=== PATIENT | female | born 1970 | race Caucasian/White ===

== ENCOUNTER 2023-08-04 09:16 | Outpatient (REF) | payer OTHER, SELFPAY ==
[2023-08-04 11:22] LABS: Iron 118 mcg/dL (30-160); Percent Iron Saturation 28 % (15-50); Total Iron Binding Capacity 419 mcg/dL (228-428); Unsaturated Iron Binding 301 ug/dL
== END 2023-08-04 09:17 | disposition home or self-care (01) ==
LOC: HO.LAB 09:16
PROVIDERS: PCP Internal Medicine; Visit Provider Psychiatry & Neurology Neurology
DX: G25.9 Extrapyramidal and movement disorder, unspecified (principal)
CPT/HCPCS: 36415; 83540

== ENCOUNTER 2024-06-10 09:04 | Outpatient (REF) | payer OTHER, SELFPAY ==
--- OUTSIDE RECORDS SUMMARY | 2024-06-10 09:50 | XMS_ITS | Encounter Summary ---
Author Organization [facility] [place] [address] Care Team Providers Care Medical Record Librarian Name Role Phone Lazaro Fuentes MD Primary Care Provider [phone] Reason for Referral * Imaging (Routine) - Closed Specialty Diagnoses / Procedures Referred By Mychal cardenas Referred To Contact Radiology Diagnoses Family history of multiple sclerosis Muscle weakness Procedures MR Brain wo Contrast Lazaro Fuentes MD [address] [place] [address] Phone: tel: fax: [address] Phone: tel: fax: Referral ID Status Reason Start Date Expiration Date Visits Re quested Visits Authorized [id number] Closed 05/18/2024 07/17/2024 1 1 Reason for Visit * Imaging (Routine) - Closed Specialty Diagnoses / Procedures Referred By Mychal cardenas Referred To Contact Radiology Diagnoses Family history of multiple sclerosis Muscle weakness Procedures MR Brain wo Contrast Lazaro Fuentes MD [address] [place] [address] Phone: tel: fax: Radiology Department - [address] Phone: tel: fax: Referral ID Status Reason Start Date Expiration Date Visits Re quested Visits Authorized [id number] Closed 05/18/2024 07/17/2024 1 1 Encounter Details Date Type Department Care Team (Latest Contact Info) Description 06/01/2024 6:03 PM EST - 06/01/2024 11:59 PM EST Hospital Encounter Radiology Department - [address] [address] Family history of multiple sclerosis; Muscle weakness Discharge Disposition: Home or Self Care Social History Tobacco Use Types Packs/Day Years Used Date Smoking Tobacco: Former Cigarettes 1 40.6 0 04/06/1982 - 10/31/2022 Smokeless Tobacco: Never Alcohol Use Standard Drinks/Week Comments No 0 (1 standard drink = 0.6 oz pur e alcohol) Comments No Sex and Gender Information Value Date Recorded Sex Assigned at Female 06/03/2024 12:14 PM EST Legal Sex Female 8:58 AM EDT Gender Identity Female 06/03/2024 12:14 PM EST Sexual Orientation Straight 06/03/2024 12 :14 PM EST documented as of this encounter Medications at Time of Discharge albuterol HFA (Ventolin HFA) 90 mcg/actuation inhaler INHALE 2 PUFFS INTO THE LUNGS 4 TIMES DAILY NEEDED FOR COUGH OR WHEEZING. 08/18/2022 atorvastatin (LIPITOR) 40 mg tablet Take 1 tablet (40 mg total) by mouth 1 (one) time each day. 02/24/2023 busPIRone (BUSPAR) 15 mg tablet Take 1.5 tablets (22.5 mg total) by mouth 2 (two) times a day. 02/16/2024 cetirizine (ZyrTEC) 10 mg tablet Take 1 tablet (10 mg total) by mouth 1 (one) time each day. 10/22/2023 famotidine (PEPCID) 20 mg tablet Take 1 tablet (20 mg total) by mouth 2 (two) times a day. 08/17/2023 fluticasone propionate (FLONASE) 50 mcg/actuation nasal spray Administer 1 spray into affected nostril(s). 06/05/2022 folic acid (FOLVITE) 800 mcg tablet Take 1 tablet (800 mcg total) by mouth 1 (one) time each day. gabapentin (NEURONTIN) 300 mg capsule Take 2 capsules (600 mg total) by mouth 2 (two) times a day. 10/05/2023 lidocaine (LIDODERM) 5 % patch Apply 1 patch topically 1 (one) time each day. 28 patch 1 03/31/2024 lurasidone (LATUDA) 20 mg tablet Take 1 tablet (20 mg total) by mouth 1 (one) time each day in the evening. 05/15/2024 melatonin 3 mg capsule Take by mouth. mirtazapine (REMERON) 15 mg tablet Take 1 tablet (15 mg total) by mouth at bedtime. 04/14/2024 pramipexole (MIRAPEX) 1.5 mg tablet Take 1.5 tablets (2.25 mg total) by mouth 1 (one) time each day. 05/15/2023 simethicone (Gas Relief, simethicone,) 180 mg capsule Take 1 capsule (180 mg total) by mouth 2 (two) times a day. tryptophan 500 mg capsule Take by mouth. documented as of this encounter Discharge Disposition Disposition Code Departure Means Destination Home or Self Care documented in this encounter Plan of Treatment Upcoming Encounters Date Type Department Care Team (Late st Contact Info) Description 06/14/2024 1:00 PM EDT Office Visit [facility] [address] [facility] [address] [facility] [address] [place] [phone] Oscar Eckert MD [address] [facility] [address] [facility] [address] [place] [phone] 06/14/2024 3:30 PM EDT Appointment Radiology Department [address] [address] 06/15/2024 10:30 AM EDT Office Visit Internal Medicine - [address] [phone] Lazaro Fuentes MD [address] [place] [address] 06/17/2024 7:00 AM EDT Evaluation [facility] [place] [address] [place] [phone] Mary Suarez, JAYSHREE 06/24/2024 8:00 AM EDT Office Visit Gastroenterology - [address] [place] [address] Farhana Potter PA [address] [place] [address] 07/04/2024 10:00 AM EDT Office Visit Urogynecology - [place] [address] [place] [address] Daxa Khan MD [address] [facility] [address] [place] [address] documented as of this encounter Procedures Procedure Name Priority Date/Time Associated Diagnosis Comments MR BRAIN WO CONTRAST Routine 06/01/2024 6:45 PM EST Family history of multiple sclerosis Muscle weakness documented in this encounter Results * MR Brain wo Contrast (06/01/2024 6:45 PM EST) Anatomical Region Laterality Modality Head and Neck Magnetic Resonan ce 06/01/2024 7:09 PM EST Impressions 06/02/2024 4:33 PM EST Nonspecific white matter signal abnormalities. ??Differential is broad and includes chronic small vessel ischemic disease, demyelinating disease, infection such as Lyme, and vasculitis. ??No evidence of a recent infarction, intracranial hemorrhage, mass, or mass effect. POS - [id number] -------- FINAL REPORT -------- Dictated By: Nat Martinez Dictated Date: 06/01/2024 19:09 ET Assigned Physician: Nat Martinez Reviewed and Electronically Signed By: Nat Martinez Signed Date: 06/02/2024 16:33 ET Workstation ID: [id number] Transcribed By: Self Edit Transcribed Date: 06/01/2024 19:36 ET Narrative 06/02/2024 4:33 PM EST EXAM: Brain MRI HISTORY: ??Muscle weakness in thighs and legs. ??Family history of multiple sclerosis in a 1st cousin. COMPARISON: None CORRELATION: ??Head CT 08/24/2023 TECHNIQUE: Exam performed on a 1.5 Verenice high-field MRI scanner. ??Multiplanar imaging performed without contrast. ?? FINDINGS: No restricted diffusion to indicate a recent infarct. ??No evidence of intracranial hemorrhage. ??Few T2/FLAIR hyperintense foci in the white matter of the left parietal lobe and right frontal lobe. ??Faint periventricular T2/FLAIR hyperintense signal abnormalities more so adjacent to the atria of the lateral ventricles. No evidence of a mass, mass effect, or midline shift. ??No hydrocephalus. ??Basal cisterns are patent. ??No cerebellar ectopia. ??Pituitary gland is not enlarged. ??Normal vascular flow-voids appear present in the major intracranial arteries at the skull base. Minimal mucosal thickening in the ethmoid sinuses. ??No significant fluid signal within mastoid air cells. Procedure Note Nat Martinez MD - 06/02/2024 EXAM: Brain MRI HISTORY: Muscle weakness in thighs and legs. Family history of multiplesclerosis in a 1st cousin. COMPARISON: None CORRELATION: Head CT 08/24/2023 TECHNIQUE: Exam performed on a 1.5 Verenice high-field MRI scanner.Multiplanar imaging performed without contrast. FINDINGS: No restricted diffusion to indicate a recent infarct. No evidence ofintracranial hemorrhage. Few T2/FLAIR hyperintense foci in the whitematter of the left parietal lobe and right frontal lobe. Faintperiventricular T2/FLAIR hyperintense signal abnormalities more soadjacent to the atria of the lateral ventricles. No evidence of a mass, mass effect, or midline shift. No hydrocephalus.Basal cisterns are patent. No cerebellar ectopia. Pituitary gland is notenlarged. Normal vascular flow-voids appear present in the majorintracranial arteries at the skull base. Minimal mucosal thickening in the ethmoid sinuses. No significant fluidsignal within mastoid air cells. IMPRESSION: Nonspecific white matter signal abnormalities. Differential is broad andincludes chronic small vessel ischemic disease, demyelinating disease,infection such as Lyme, and vasculitis. No evidence of a recentinfarction, intracranial hemorrhage, mass, or mass effect. POS - [id number] -------- FINAL REPORT -------- Dictated By: Nat Martinez Dictated Date: 06/01/2024 19:09 ET Assigned Physician: Nat Martinez Reviewed and Electronically Signed By: Nat Martinez Signed Date: 06/02/2024 16:33 ET Workstation ID: [id number] Transcribed By: Self Edit Transcribed Date: 06/01/2024 19:36 ET Lazaro Fuentes MD IMG MRI PROCEDURES Final Result documented in this encounter Visit Diagnoses Diagnosis Family history of multiple sclerosis Family history of other neurological diseases Muscle weakness Muscle weakness (generalized) documented in this encounter Additional Health Concerns Infection Onset Date Last Indicated Resolved Time COVID-19 05/23/2024 05/23/2024 documented as of this encounter Care Teams Medical Record Librarian Relationship Specialty Start Date End Date Lazaro Fuentes MD [address] [place] [address] PCP - General Internal Medicine 03/18/16 documented as of this encounter
--- OUTSIDE RECORDS SUMMARY | 2024-06-10 09:50 | XMS_ITS | Encounter Summary ---
Author Organization [facility] [place] [address] Care Team Providers Care Bank Vault Custodian Name Role Phone Lazaro Fuentes MD Primary Care Provider [phone] Encounter Details Date Type Department Care Team (Latest Contact Info) Description 05/18/2024 11:03 AM EST - 05/18/2024 11:59 PM EST Hospital Encounter [facility] [address] [place] [phone] Unintended weight loss Discharge Disposition: Home or Self Care Social [...] tryptophan 500 mg capsule Take by mouth. baclofen (LIORESAL) 20 mg tablet Take 1 tablet (20 mg total) by mouth 2 (two) times a day. 60 each 1 05/18/2024 5 documented as of this encounter Discharge Disposition Disposition Code Departure Means Destination Home or Self Care documented in this encounter Plan of Treatment Upcoming Encounters Date Type Department Care Team (Late st Contact Info) Description 06/14/2024 1:00 PM EDT Office Visit [facility] [place] [address] [place] [phone] Oscar Eckert MD [address] [facility] [place] [phone] 06/14/2024 3:30 PM EDT Appointment Radiology Department - [address] [phone] 06/15/2024 10:30 AM EDT Office Visit Internal Medicine - [facility] [address] [place] [address] Lazaro Fuentes MD [address] [place] [address] 06/17/2024 7:00 AM EDT Evaluation [facility] [place] [address] [facility] [facility] [address] [place] [phone] Mary Suarez PT 06/24/2024 8:00 AM EDT Office Visit Gastroenterology - [address] [facility] [address] [place] [address] Farhana Potter PA [address] [facility] [address] [facility] [address] [place] [address] 07/04/2024 10:00 AM EDT Office Visit Urogynecology - [address] [phone] Daxa Khan MD [address] [place] [address] [address] [place] [address] documented as of this encounter Procedures Procedure Name Priority Date/Time Associated Diagnosis Comments XR CHEST 2 VIEWS Routine 05/18/2024 11:0 7 AM EST Unintended weight loss documented in this encounter Results * XR Chest 2 Views (05/18/2024 11:07 AM EST) Anatomical Region Laterality Modality Body Radiographic Cecilia ging 05/18/2024 1:33 PM EST Impressions 05/18/2024 1:35 PM EST No acute pulmonary pathology. -------- FINAL REPORT -------- Dictated By: Yumiko Hidalgo Dictated Date: 05/18/2024 13:33 ET Assigned Physician: Yumiko Hidalgo Reviewed and Electronically Signed By: Yumiko Hidalgo Signed Date: 05/18/2024 13:35 ET Workstation ID: [id number] Transcribed By: Self Edit Transcribed Date: 05/18/2024 13:33 ET Narrative 05/18/2024 1:35 PM EST CHEST, TWO VIEWS HISTORY: ?? Weight loss. TECHNIQUE: Frontal and lateral views of the chest. PRIOR: Chest x-ray 07/06/2017. FINDINGS: The lungs are clear. No pleural effusion is seen. No pneumothorax is seen. The cardiac diameter is within normal limits. No acute or aggressive appearing bony abnormalities are seen. ??There is curvature and degenerative change of the spine. Procedure Note Yumiko Hidalgo MD - 05/18/2024 CHEST, TWO VIEWS HISTORY: Weight loss. TECHNIQUE: Frontal and lateral views of the chest. PRIOR: Chest x-ray 07/06/2017. FINDINGS: The lungs are clear. No pleural effusion is seen. No pneumothorax is seen. The cardiac diameter is within normal limits. No acute or aggressive appearing bony abnormalities are seen. There iscurvature and degenerative change of the spine. IMPRESSION: No acute pulmonary pathology. -------- FINAL REPORT -------- Dictated By: Yumiko Hidalgo Dictated Date: 05/18/2024 13:33 ET Assigned Physician: Yumiko Hidalgo Reviewed and Electronically Signed By: Yumiko Hidalgo Signed Date: 05/18/2024 13:35 ET Workstation ID: [id number] Transcribed By: Self Edit Transcribed Date: 05/18/2024 13:33 ET Lazaro Fuentes MD IMG XR PROCEDURES Final R esult documented in this encounter Visit Diagnoses Diagnosis Unintended weight loss documented in this encounter Care Teams Bank Vault Custodian Relationship Specialty Start Date End Date Lazaro Fuentes MD [address] [place] [address] PCP - General Internal Medicine 03/18/16 documented as of this encounter
--- OUTSIDE RECORDS SUMMARY | 2024-06-10 09:50 | XMS_ITS | Clinical Summary ---
Author Organization [employer] [facility] Address [address] [place] [address] Care Team Providers Care Flame Hardening Machine Operator Name Role Phone Unavailable Primary Care Provider Unavailabl e Social History Tobacco Use Types Packs/Day Years Used Date Smoking Tobacco: Never Assessed Sex and Gender Information Value Date Recorded Sex Assigned at Female 07/03/2019 9:12 AM EDT Gender Identity Not on file Sexual Orientation Not on file Job Start Date Occupation Industry Not on file Not on file Not on file Plan of Treatment Not on file
--- OUTSIDE RECORDS SUMMARY | 2024-06-10 09:50 | XMS_ITS | Encounter Summary ---
Author Organization [facility] [place] [address] Care Team Providers Care Department Director Name Role Phone Lazaro Fuentes MD Primary Care Provider [phone] Reason for Visit * Reason Comments URI Hyperlipidemia Encounter Details Date Type Department Care Team ([facility] Contact Info) Description 05/23/2024 1:45 PM EST Office Visit [facility] [address] [phone] Roderick Chavez PA [address] [place] [address] COVID (Primary Dx) Social History Tobacco Use Types Packs/Day Years Used Date Smoking Tobacco: Former Cigarettes 1 40.6 0 04/06/1982 - 10/31/2022 Smokeless Tobacco: Never Tobacco Cessation:Counseling Given: Not Answered Alcohol Use Standard Drinks/Week Comments No 0 (1 standard drink = 0.6 oz pur e alcohol) Comments No Sex and Gender Information Value Date Recorded Sex Assigned at Female 06/03/2024 12:14 PM EST Legal Sex Female 8:58 AM EDT Gender Identity Female 06/03/2024 12:14 PM EST Sexual Orientation Straight 06/03/2024 12 :14 PM EST documented as of this encounter Last Filed Vital Signs Vital Sign Reading Time Taken Comments Blood Pressure 102/64 05/23/2024 1:42 PM EST Pulse 78 05/23/2024 1:42 PM EST Temperature 36.9 ??C (98.4 ??F) 05/23/2024 1:42 PM ES T Respiratory Rate - - Oxygen Saturation 99% 05/23/2024 1:42 PM EST Inhaled Oxygen Concentration - - Weight - - Height - - Body Mass Index - - documented in this encounter Progress Notes * SHAD Newberry - 05/23/2024 1:45 PM EST CHIEF COMPLAINT: URI and Hyperlipidemia had concerns including URI and Hyperlipidemia. IDENTIFIER: Afia Garcia is a 53 y.o. old female. [address] [facility] HPI: Afia Garcia presents to urgent care for evaluation of chills body aches cough. Fatigue. Patient's been with the symptoms for about a day.. PHYSICAL EXAM: Vitals: 05/23/24 1342 BP: 102/64 Pulse: 78 Temp: 36.9 ??C (98.4 ??F) SpO2: 99% APPEARANCE: Alert and in no acute distress HEENT: EOMs full and intact, PERRLA, conjunctivae and sclerae normal, nasal exam showed no discharge, swelling or lesions noted, hearing was normal bilaterally to whispered voice, clear aduitory canals, tympanic membranes pearly with no bulging, teeth intact, non-carious and tongue midline and normal. Oropharynx, pink, moist. Tonsils not enlarged with no exudate NECK:Neck supple, no adenopathy, thyroid symmetric and of normal size CARDIOVASCULAR:regular rate and rhythm without murmurs PULMONARY:unlabored respirations, no intercostal retractions or accessory muscle use and clear to auscultation without rales or wheezes LABS/IMAGING: Office Visit on 05/23/2024 Component Date Value Ref Range Status COVID-19/SARS-COV-2 Rapid POC 05/23/2024 Positive (A) Negative Final Internal Control Pass 05/23/2024 Yes Yes Final Rapid Influenza A 05/23/2024 Negative Negative Final Rapid Influenza B 05/23/2024 Negative Negative Final Internal Control Pass 05/23/2024 Yes Yes Final No images are attached to the encounter. ROS: Review of Systems Constitutional: Positive for fatigue. HENT: Positive for congestion. Eyes: Negative. Respiratory: Positive for cough. Cardiovascular: Negative. Gastrointestinal: Negative. Endocrine: Negative. Genitourinary: Negative. Musculoskeletal: Positive for myalgias. Skin: Negative. Breast: negative. PROBLEMS: Afia was seen today for uri and hyperlipidemia. Diagnoses and all orders for this visit: 1. COVID - Poc Rapid [id number], MOLECULAR - POC RAPID INFLUENZA A&B, Molecular Patient has taken Paxlovid in the past when she has been COVID-positive and does not agree with her. I think given her age and comorbidities patient can just treat this symptomatically. Take in fluids maintain adequate nutrition. Rest. Return for any worsening symptoms. Work note given to stay out for 5 days Orders Placed This Encounter Procedures Poc Rapid [id number], MOLECULAR POC RAPID INFLUENZA A&B, Molecular PAST MEDICAL HISTORY: Patient Active Problem List Diagnosis Date Noted Prediabetes 04/01/2024 Former smoker 12/23/2023 History of seizure 12/23/2023 History of uterine fibroid 12/23/2023 Hiatal hernia 07/06/2023 Steatosis of liver 07/06/2023 History of COVID-19 05/14/2022 Irritable bowel syndrome with constipation 03/09/2020 Chronic nonintractable headache 03/09/2020 Restless leg syndrome 11/27/2016 Mixed hyperlipidemia 04/01/2016 Cocaine abuse in remission ([facility]/HCC) 12/06/2013 Anxiety 09/28/2012 Insomnia 09/28/2012 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 Dermatofibroma of trunk 02/23/2012 Past Surgical History: Procedure Laterality Date BLADDER SURGERY PROCEDURE: HISTORICAL BLADDER SURGERY; COMMENT: repair reflux as a child COLONOSCOPY 2022 PROCEDURE: HISTORICAL COLONOSCOPY; COMMENT: nml SOCIAL HISTORY: Social History Tobacco Use Smoking status: Former Current packs/day: 0.00 Average packs/day: 1 pack/day for 40.6 years (40.6 ttl pk-yrs) Types: Cigarettes Start date: 04/06/1982 Quit date: 10/31/2022 Years since quittin.5 Smokeless tobacco: Never Substance Use Topics Alcohol use: No FAMILY HISTORY: Family History Problem Relation Name Age of Onset Kidney cancer Mother Other (Other: ca thyroid) Sister Coronary artery disease Brother triple bypass Coronary artery disease Mother's side uncle 55 of ID Colon cancer Neg Hx Ovarian cancer Neg Hx Breast cancer Neg Hx MEDICATIONS DISCONTINUED/REORDERED: There are no discontinued medications. ACTIVE MEDICATIONS: No outpatient medications have been marked as taking for the 05/23/24 encounter (Office Visit) with SHAD Newberry. ALLERGIES: Allergies Allergen Reactions Other Seasonal allergies The details of the visit were reviewed with the patient. Pertinent history, and objective findings were reviewed, along with the diagnoses: Afia Garcia acknowledges understanding of the above plan and agrees to follow recommendations and/or take medications as prescribed. This visit was performed at an urgent care facility. The patient should follow up with their PCP orthe relevant specialist(s) SHAD Newberry Cosigned by Hipolito Farr MD at 05/24/2024 9:59 AM EST documented in this encounter Plan of Treatment Upcoming Encounters Date Type Department Care Team (Late st Contact Info) Description 06/14/2024 1:00 PM EDT Office Visit [facility] [place] [address] [place] [phone] Oscar Eckert MD [address] [facility] [address] [place] [phone] 06/14/2024 3:30 PM EDT Appointment Radiology Department - [address] [phone] 06/15/2024 10:30 AM EDT Office Visit Internal Medicine - [address] [phone] Lazaro Fuentes MD [address] [place] [address] 06/17/2024 7:00 AM EDT Evaluation [facility] [place] [address] [place] [phone] Mary Suarez PT 06/24/2024 8:00 AM EDT Office Visit Gastroenterology - [address] [place] [phone] Farhana Potter PA [address] [place] [address] 07/04/2024 10:00 AM EDT Office Visit Urogynecology - [place] [address] [place], [place] [phone] Daxa Khan MD [address] [place] [address] documented as of this encounter Procedures Procedure Name Priority Date/Time Associated Diagnosis Comments POC RAPID INFLUENZA A&B, MOLECULAR Routine 05/23/2024 2:10 PM EST COVID POC RAPID [id number], MOLECULAR Routine 05/23/2024 2:10 PM EST COVID documented in this encounter Results * POC RAPID INFLUENZA A&B, Molecular (05/23/2024 2:10 PM EST) Rapid Influenza A Negative Negative Rapid Influenza B Negative Negative Internal Control Pass Yes Yes Swab Nasopharyngeal structure / Unknown 05/23/2024 2:10 PM EST us Roderick KULKARNI POINT OF CARE TEST ENTER/EDIT OR DERABLES Final Result * (ABNORMAL) Poc Rapid [id number], MOLECULAR (05/23/2024 2:10 PM EST) COVID-19/SARS- COV-2 Rapid POC Positive(A ) Negative Internal Control Pass Yes Yes Swab Nasopharyngeal structure / Unknown 05/23/2024 2:10 PM EST us Roderick KULKARNI POINT OF CARE TEST ENTER/EDIT OR DERABLES Final Result documented in this encounter Visit Diagnoses Diagnosis COVID- Primary documented in this encounter Additional Health Concerns Infection Onset Date Last Indicated Resolved Time COVID-19 05/23/2024 05/23/2024 documented as of this encounter Care Teams Department Director Relationship Specialty Start Date End Date Lazaro Fuentes MD [address] [place] [id number] PCP - General Internal Medicine 03/18/16 documented as of this encounter
--- OUTSIDE RECORDS SUMMARY | 2024-06-10 09:50 | XMS_ITS | Encounter Summary ---
Author Organization [facility] Address [address] [place] [address] Care Team Providers Care Fish Hatchery Manager Name Role Phone Lazaro Fuentes MD Primary Care Provider [phone] Reason for Referral * Consultation (Routine) - Pending Review Specialty Diagnoses / Procedures Referred By Mychal cardenas Referred To Contact Physical Therapy Diagnoses Lumbar pain Kari Chavez PA [address] [place], [place] Phone: tel: fax: Referral ID Status Reason Start Date Expiration Date Visits Requested Visits Authorized [id number] Pending Review Consult and Treat 06/02/2024 06/02/2025 1 1 Reason for Visit * Reason Onset Date Comments PT ORDER 06/02/2024 Encounter Details Date Type Department Care Team (Late st Contact Info) Description 06/02/2024 Telephone Orthopedics - [place] [address] [place] [address] Kari Chavez PA [address] [place] [phone] PT ORDER Social History Tobacco Use Types Packs/Day Years [...] PM EST documented as of this encounter Progress Notes * Trina Tovar MA - 06/06/2024 10:15 AM EST No notes in system from [facility], referral and paperwork faxed to [facility] with request to call patient for a consult. vf * SHAD Newberry - 06/02/2024 4:06 PM ESTAddended by: KARI CHAVEZ on: 06/02/2024 04:06 PM Modules accepted: Orders * SHAD Newberry - 06/02/2024 4:06 PM EST PT referral placed. This the patient have an appoint with Dr. Wu * Trina Tovar MA - 06/02/2024 2:51 PM EST Please review. vf * Patricia Gonzalez - 06/02/2024 2:41 PM EST Tysno from [facility] ([place]) is calling. Pt called looking for PT for her back pain and scheduled appt for June 17 ([facility]) Referral only for tendinitis (does not want to treat), and referral to Dr. Stafford Asking if we can please place order for back pain, she will keep an eye out for it. documented in this encounter Plan of Treatment Upcoming Encounters Date Type Department Care Team (Late st Contact Info) Description 06/14/2024 1:00 PM EDT Office Visit [facility] [place] [address] [place] [phone] Oscar Eckert MD [address] [facility] [address] [place] [phone] 06/14/2024 3:30 PM EDT Appointment Radiology Department - [address] [phone] 06/15/2024 10:30 AM EDT Office Visit Internal Medicine - [address] [phone] Lazaro Fuentes MD [address] [place] [address] 06/17/2024 7:00 AM EDT Evaluation [facility] [place] [address] [facility] [address] [place] [phone] Mary Suarez PT 06/24/2024 8:00 AM EDT Office Visit Gastroenterology - [address] [facility] [address] [place] [phone] Farhana Potter PA [address] [facility] [address] [place] [address] 07/04/2024 10:00 AM EDT Office Visit Urogynecology - [address] [phone] Daxa hKan MD 580 [facility] 205 [place] [address] Scheduled Referrals Name Type Priority Associated Diagnoses Order Schedule Ambulatory referral to Physical Therapy and Athletic Training Outpatient Referral Routine Lumbar pain 1 Occurrences starting 06/02/2024 until 06/02/2025 documented as of this encounter Visit Diagnoses Diagnosis Lumbar pain- Primary Lumbago documented in this encounter Additional Health Concerns Infection Onset Date Last Indicated Resolved Time COVID-19 05/23/2024 05/23/2024 documented as of this encounter Care Teams Fish Hatchery Manager Relationship Specialty Start Date End Date Lazaro Fuentes MD [address] [place] [address] PCP - General Internal Medicine 03/18/16 documented as of this encounter
--- OUTSIDE RECORDS SUMMARY | 2024-06-10 09:51 | XMS_ITS | Encounter Summary ---
Author Organization [facility] [place] [address] Care Team Providers Care Furnace Room Supervisor Name Role Phone Lazaro Fuentes MD Primary Care Provider [phone] Reason for Visit * Reason Onset Date Comments Medication Reaction 05/19/2024 Encounter Details Date Type Department Care Team (Late st Contact Info) Description 05/19/2024 Telephone Internal Medicine - [address] [phone] Lazaro Fuentes MD [address] [place] [phone] Medication Reaction Social History Tobacco Use Types Packs/Day Years [...] as of this encounter Progress Notes * Frances Raza MA - 05/20/2024 8:20 AM EST Pt informed . * Lazaro Fuentes MD - 05/19/2024 7:12 PM EST Letter printed. * Frances Raza MA - 05/19/2024 4:05 PM EST Pt informed, letter pended. * Lazaro Fuentes MD - 05/19/2024 3:29 PM EST Please advise her to stop the baclofen. Have discontinued the baclofen completely. Please set up letter. * Becka Sheldon RN - 05/19/2024 2:44 PM EST Spoke with the patient she feels she is having a reaction to the baclofen since taking she has beenoff balance dizzy involuntary movements and told her she was restless and kicking her legs all night. She hasn't had this reaction until she started this medication. She would also like a note to stay out of work tomorrow so she can recover from this. Please review and advise thank you * Sue Henderson - 05/19/2024 2:24 PM EST Medication Problem: What is the name of the medication patient is having a problem with?: baclofen (prescribed yesterday) What is the problem?: dizziness, off balance, involuntary movements in fingers and thrashing of whole body when in bed Who is calling about the problem? : The patient Is this a NEW medication?: yes How long has the patient been taking this medication? 2 doses Who prescribed this medication for the patient? PCP Who is patients PCP?: Lazaro Fuentes MD [facility] Care PLAN / Plan: [facility] [place] [facility] / Product Type: *No Product type* / documented in this encounter Plan of Treatment Upcoming Encounters Date Type Department Care Team (Late st Contact Info) Description 06/14/2024 1:00 PM EDT Office Visit [facility] [place] [address] [place] [phone] Oscar Eckert MD [address] [place] [phone] 06/14/2024 3:30 PM EDT Appointment Radiology Department - [address] [phone] 06/15/2024 10:30 AM EDT Office Visit Internal Medicine - [facility] [address] [place] [address] Lazaro Fuentes MD [address] [place] [address] 06/17/2024 7:00 AM EDT Evaluation [facility] [place] [address] [place] [phone] Mary Suarez, PT 06/24/2024 8:00 AM EDT Office Visit Gastroenterology - [address] [place] [phone] Farhana Potter PA [address] [facility] [address] [place] [address] 07/04/2024 10:00 AM EDT Office Visit Urogynecology - [address] [phone] Daxa Khan MD [address] [place] [address] [address] [place] [address] documented as of this encounter Visit Diagnoses Not on filedocumented in this encounter Discontinued Medications Medication Sig Discontinue Reason Start Date End Da te baclofen (LIORESAL) 20 mg tablet Take 1 tablet (20 mg total) by mouth 2 (two) times a day. Side effects 05/18/2024 05/19/2024 documented as of this encounter Care Teams Furnace Room Supervisor Relationship Specialty Start Date End Date Lazaro Fuentes MD [address] [place] [address] PCP - General Internal Medicine 03/18/16 documented as of this encounter
--- OUTSIDE RECORDS SUMMARY | 2024-06-10 09:51 | XMS_ITS | Clinical Summary ---
Author Organization Patient Business Ser [facility] Address [address] [place] [address] Care Team Providers Care Activities Manager Name Role Phone Lazaro Villa MD Primary Care Provider [phone] Allergies Active Allergy Reactions Criticality Noted Date Comments Other 11/27/2016 Seasonal allergies Medications atorvastatin (LIPITOR) 40 mg tablet Take 1 tablet (40 mg total) by mouth 1 (one) time each day. 02/25/20 23 Active cetirizine (ZyrTEC) 10 mg tablet Take 1 tablet (10 mg total) by mouth 1 (one) time each day. 10/22/19 24 Active famotidine (PEPCID) 20 mg tablet Take 1 tablet (20 mg total) by mouth 2 (two) times a day. 08/17/19 24 Active fluticasone propionate (FLONASE) 50 mcg/actuation nasal spray Administer 1 spray into affected nostril(s). 06/06/19 23 Active folic acid (FOLVITE) 800 mcg tablet Take 1 tablet (800 mcg total) by mouth 1 (one) time each day. Active gabapentin (NEURONTIN) 300 mg capsule Take 2 capsules (600 mg total) by mouth 2 (two) times a day. 10/05/19 24 Active melatonin 3 mg capsule Take by mouth. Active pramipexole (MIRAPEX) 1.5 mg tablet Take 1.5 tablets (2.25 mg total) by mouth 1 (one) time each day. 05/15/19 24 Active tryptophan 500 mg capsule Take by mouth. Active albuterol HFA (Ventolin HFA) 90 mcg/actuation inhaler INHALE 2 PUFFS INTO THE LUNGS 4 TIMES DAILY NEEDED FOR COUGH OR WHEEZING. 08/19/19 23 Active simethicone (Gas Relief, simethicone,) 180 mg capsule Take 1 capsule (180 mg total) by mouth 2 (two) times a day. Active busPIRone (BUSPAR) 15 mg tablet Take 1.5 tablets (22.5 mg total) by mouth 2 (two) times a day. 02/16/20 24 Active lidocaine (LIDODERM) 5 % patch Apply 1 patch topically 1 (one) time each day. 28 patch 1 03/31/20 24 Active lurasidone (LATUDA) 20 mg tablet Take 1 tablet (20 mg total) by mouth 1 (one) time each day in the evening. 05/15/19 25 Active mirtazapine (REMERON) 15 mg tablet Take 1 tablet (15 mg total) by mouth at bedtime. 04/14/19 25 Active atomoxetine (STRATTERA) 60 mg capsule Take 40 mg by mouth. 08/26/19 24 025 Discontinued nutritional supplement-fib er 0.05 gram-1 kcal/mL liquid Take by mouth. 025 Discontinued FLUoxetine (PROzac) 20 mg capsule Take 1 capsule (20 mg total) by mouth 1 (one) time each day. 06/09/19 24 025 Discontinued multivit with minerals/lutei n (MULTIVITAMIN 50 PLUS ORAL) Take by mouth. 025 Discontinued simethicone (MYLICON,GAS-X ) 125 mg capsule Take 1 capsule (125 mg total) by mouth 4 (four) times a day. 07/31/19 24 025 Discontinued lisdexamfetami ne (VYVANSE) 10 MG capsule 1 (one) time each day. 025 Discontinued methylphenidat e HCl (CONCERTA ORAL) Take 30 mg by mouth 1 (one) time each day. 025 Discontinued(Th erapy completed) gabapentin (NEURONTIN) 100 mg capsuleIndicat ions:Neuropath y Take 1 capsule (100 mg total) by mouth at bedtime. For neuropathy in addition to 300 mg dose 90 each 03/31/20 24 025 Discontinued(Do se adjustment) baclofen (LIORESAL) 20 mg tablet Take 1 tablet (20 mg total) by mouth 2 (two) times a day. 60 each 1 05/18/19 25 025 Discontinued(Si de effects) Active Problems Problem Noted Date Diagnosed Date Prediabetes 04/01/2024 Former smoker 12/23/2023 History of seizure 12/23/2023 Overview (12/23/2023): Teens,self limited recurrence in 30's History of uterine fibroid 12/23/2023 Hiatal hernia 07/06/2023 Overview (12/23/2023): Small, CT 06/2023 Steatosis of liver 07/06/2023 Overview (12/23/2023): US & CT 2023 History of COVID-19 05/14/2022 Irritable bowel syndrome with constipation 03/09 Chronic nonintractable headache 03/09/2020 Restless leg syndrome 11/27/2016 Mixed hyperlipidemia 04/01/2016 Cocaine abuse in remission 12/06/2013 Anxiety 09/28/2012 Insomnia 09/28/2012 Overview (12/23/2023): 01/2018 Diagnostic PSG did not reveal sleep apnea. 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 Dermatofibroma of trunk 02/23/2012 Encounters Date Type Department Care Team Description 06/07/2024 8:45 AM EST Office Visit [facility] [address] [place] [address] Cass Mann DO Cyst of right ovary (Primary Dx) 06/02/2024 Telephone Orthopedics - [address] [phone] Roderick Chavez PA PT ORDER 06/01/2024 6:03 PM EST - 06/01/2024 11:59 PM EST Hospital Encounter Radiology Department - [address] [phone] Family history of multiple sclerosis; Muscle weakness Discharge Disposition: Home or Self Care 05/23/2024 1:45 PM EST Office Visit Walk-In Clinic [facility] [address] [place] [address] Roderick Chavez PA COVID (Primary Dx) 05/20/2024 9:30 AM EST - 05/20/2024 11:59 PM EST Hospital Encounter CT Scan - [address] [phone] Unintended weight loss Discharge Disposition: Home or Self Care 05/19/2024 Telephone Internal Medicine - [address] [phone] Lazaro Villa MD Medication Reaction 05/18/2024 11:03 AM EST - 05/18/2024 11:59 PM EST [facility] [phone] Unintended weight loss Discharge Disposition: Home or Self Care 05/18/2024 9:45 AM EST Office [facility] [phone] Lazaro Villa MD Diffuse arthralgia (Primary Dx); Family history of multiple sclerosis; Unintended weight loss; Muscle weakness 05/17/2024 Telephone [facility] [phone] Lazaro Villa MD Referral 04/08/2024 11:30 AM EST Office Visit Orthopedics - [address] [phone] Roderick Chavez PA Foreign body in soft tissue (Primary Dx); Lumbar pain; Left knee pain, unspecified chronicity 03/31/2024 10:00 AM EST [facility] [address] [place] [address] Gonsalo Rush NP Neuropathy (Primary Dx) 03/24/2024 6:15 PM EST - 03/24/2024 11:59 PM EST Hospital Encounter Radiology Department - [address] [phone] Foreign body in soft tissue Discharge Disposition: Home or Self Care 03/24/2024 Telephone [facility] [address] [place] [phone] Lazaro Villa MD Leg Pain 03/18/2024 9:31 AM EST - 03/18/2024 11:59 PM EST Hospital Encounter XRAY - [address] [phone] Discharge Disposition: Home or Self Care 03/18/2024 9:00 AM EST Consult Orthopedics - [address] [phone] Roderick Chavez PA Foreign body in soft tissue (Primary Dx); Lumbar pain from Last 3 Months Immunizations Name Administration Dates Next Due Influenza trivalent, with pr eservative (Fluzone; Afluria) 6mo and older 04/01/2016 Influenza, Unspecified 01/19/2024,02/04/2022 Td Tetanus diptheria (Tdvax) 7yo and older 04/06 Tdap Tetanus diptheria acell ular pertussis (Boostrix; Adacel) 7yo and older 01/20/2024,12/06/2013 Zoster recombinant (Shingrix) 19yo and older ,10/23/2021 Surgical History Surgery Date Site/Laterality Comments BLADDER SURGERY PROCEDURE: HISTORICAL BLADDER SURGERY; COMMENT: repair reflux as a child COLONOSCOPY 2022 PROCEDURE: HISTORICAL COLONOSCOPY; COMMENT: nml Medical History Medical History Date Comments Tobacco abuse DX:Tobacco abuse Cocaine abuse in remission (CMS/HCC) DX:Cocaine abuse in remission (HCC) 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 DX:Compound nevu s Dermatofibroma of trunk 02/23/2012 DX:[place] tofibroma of trunk Restless leg syndrome 11/27/2016 DX:Restles s leg syndrome History of seizure 03/16/2023 DX:History of seizure; COMMENT: Teens, self limited recurrence in 30s Hiatal hernia 07/06/2023 DX:Hiatal hernia ; COMMENT: Small, CT 06/2023 Steatosis of liver 07/06/2023 DX:Steatosis of liver; COMMENT: US & CT 2023 Family History Medical History Relation Name Comments Coronary artery disease Brother trip le bypass Kidney cancer Mother Coronary artery disease Mother's side unc le 55 of [place] Other: ca thyroid Sister Breast cancer Neg Hx Colon cancer Neg Hx Ovarian cancer Neg Hx Relation Name Status Comments Brother Father Alive dm, htn Mother Alive htn Mother's side Sister Social History Tobacco Use Types Packs/Day Years [...] Orientation Straight 06/03/2024 12 :14 PM EST Obstetrics History Para Term AB IAB SAB Ectopic Multiple Livin g Live Births 1 1 1 Date Outcome GA Total Labor Labor/2nd/3rd Weight Sex Type Anes PTL Paige A1 A5 Name Clin Term Last Filed Vital Signs Vital Sign Reading Time Taken Comments Blood Pressure 116/74 06/07/2024 8:48 AM EST Pulse 79 06/07/2024 8:48 AM EST Temperature 36.9 ??C (98.4 ??F) 05/23/2024 1:42 PM ES T Respiratory Rate 18 06/07/2024 8:48 AM EST Oxygen Saturation 99% 05/23/2024 1:42 PM EST Inhaled Oxygen Concentration - - Weight 74 kg (163 lb 3.2 oz) 06/07/2024 8:48 AM EST Height 157.5 cm (5' 2 ) 06/07/2024 8:48 AM EST Body Mass Index 29.85 06/07/2024 8:48 AM EST Plan of Treatment Upcoming Encounters Date Type Department Care Team (Late st Contact Info) Description 06/14/2024 1:00 PM EDT Office Visit [facility] [place] [facility] [place] [address] [place] [phone] Oscar Eckert MD [address] [facility] [address] [place] [phone] 06/14/2024 3:30 PM EDT Appointment Radiology Department - [address] [phone] 06/15/2024 10:30 AM EDT Office Visit Internal Medicine - [facility] [address] [place] [phone] Lazaro Villa MD [address] [place] [address] 06/17/2024 7:00 AM EDT Evaluation [facility] [place] [address] [facility] [address] [place] [phone] Mary Suarez, JAYSHREE 06/24/2024 8:00 AM EDT Office Visit Gastroenterology - [address] [facility] [address] [place] [phone] Farhana Potter PA [address] [facility] [address] [place] [address] 07/04/2024 10:00 AM EDT Office Visit Urogynecology - [address] [phone] Daxa Khan MD [address] [place] [address] [address] [place] [address] Health Maintenance Due Date Last Done Comments Hepatitis A Vaccines (1 of 2 - Risk 2-dose series) 06/11/1990 Hepatitis B Vaccines (1 of 3 - 19+ 3-dose series) 06/11/1990 Pneumococcal Vaccine: 50+ Years (1 of 2 - PCV) 06/11/1990 Pneumococcal Vaccine: Pediatrics (0 to 5 Years) and At-Risk Patients (6 to 64 Years) (1 of 2 - PCV) 06/11/1990 Lung Cancer Screening (Low Dose CT) 12/20/2019 Depression Screening 06/08/2024 06/09/2023, 06/09/19 Social Influencers of Health Screening 08/23/2024 08/24/2023 Breast Cancer Screening 06/21/2025 06/22/19 24, 06/20/2022, 05/21/2021, Additional history exists Cervical Cancer Screening: Pap Smear 06/30/2025 06/30/2022 Cholesterol Screening (Lipid Panel) 10/14/2028 10/15/2023, 10/15/2023 Colorectal Cancer Screening: Colonoscopy 06/26/2032 06/26/2022, 06/26/2022 DTaP,Tdap,and Td Vaccines (4 - Td or Tdap) 01/19/2034 01/20/2024, 12/06/2013, 04/06/2007 Zoster Vaccines Completed 03/19/2022, 10/23/2021 Hepatitis C Screening Completed 10/01/2022 COVID-19 Vaccine Completed 12/18/2023, 08/2020, 05/15/2020, Additional history exists Influenza Vaccine Completed 01/19/2024, , 02/04/2022, Additional history exists HIV Screening Completed 05/18/2024 HIB Vaccines Aged Out No longer eligi ble based on patient's age to complete this topic HPV Vaccines Aged Out No longer eligi ble based on patient's age to complete this topic IPV Vaccines Aged Out No longer eligi ble based on patient's age to complete this topic MMR Vaccines Aged Out No longer eligi ble based on patient's age to complete this topic Meningococcal ACWY Vaccine Aged Out N o longer eligible based on patient's age to complete this topic Meningococcal B Vacine Aged Out No lo nger eligible based on patient's age to complete this topic RSV Immunization Patients Under 20 months Aged Out No longer eligible based on patient's age to complete this topic Varicella Vaccines Aged Out No longer eligible based on patient's age to complete this topic Procedures Procedure Name Priority Date/Time Associated Diagnosis Comments MR BRAIN WO CONTRAST Routine 06/01/2024 6:45 PM EST Family history of multiple sclerosis Muscle weakness POC RAPID INFLUENZA A&B, MOLECULAR Routine 05/23/2024 2:10 PM EST COVID POC RAPID [id number], MOLECULAR Routine 05/23/2024 2:[address] ABDOMEN PELVIS W CONTRAST Routine 05/20/2024 10:05 AM EST Unintended weight loss CHAVARRIA URINE CULTURE TUBE Routine 05/18/19 12:55 PM EST Unintended weight loss CBC WITH AUTO DIFFERENTIAL Routine 05/18/2024 11:44 AM EST Unintended weight loss URINALYSIS WITH REFLEX MICROSCOPIC AND CULTURE Routine 05/18/2024 11:44 AM EST Unintended weight loss CBC AND DIFFERENTIAL Routine 05/18/2024 11:44 AM EST Unintended weight loss COMPREHENSIVE METABOLIC PANEL Routine 05/18/2024 11:44 AM EST Unintended weight loss HIV 1, 2 ANTIBODY, P24 ANTIGEN WITH REFLEX TO DIFFERENTIATION Routine 05/18/2024 11:44 AM EST Unintended weight loss URINALYSIS WITH REFLEX MICROSCOPIC AND CULTURE Routine 05/18/2024 11:44 AM EST Unintended weight loss CREATINE KINASE Routine 05/18/2024 11:44 AM EST Diffuse arthralgia Muscle weakness CULTURE URINE Routine 05/18/2024 11:44 AM EST Unintended weight loss XR CHEST 2 VIEWS Routine 05/18/2024 11:0 7 AM EST Unintended weight loss VITAMIN B12 Routine 03/31/2024 10:51 AM EST Neuropathy THYROID STIMULATING HORMONE Routine 03/31/2024 10:51 AM EST Neuropathy HEMOGLOBIN A1C Routine 03/31/2024 10:51 AM EST Neuropathy TREPONEMA PALLIDUM ANTIBODY WITH REFLEX TO RPR AND PARTICLE AGGLUTINATION Routine 03/31/2024 10:51 AM EST Peripheral nerve disorder BORRELIA BURGDORFERI ANTIBODY Routine 03/31/2024 10:51 AM EST Peripheral nerve disorder MR KNEE WO CONTRAST LEFT Routine 03/24/2024 6:53 PM EST Foreign body in soft tissue XR LUMBAR SPINE 4+ VIEWS Routine 03/18/2024 9:38 AM EST Lumbar pain LIPID PANEL Routine 10/15/2023 NUNU SCREENING DIGITAL Routine 06/22/2023 2:58 PM EDT Encounter for screening mammogram for malignant neoplasm of breast DEPRESSION SCREENING Routine 06/09/2023 HEPATITIS C SCREENING Routine 10/01/2022 PAP SMEAR Routine 06/30/2022 COLONOSCOPY Routine 06/26/2022 from Last 3 Months or Most Recently Relevant to Health Maintenance Results * MR Brain wo Contrast (06/01/2024 [...] hemorrhage, mass, or mass effect. POS - [id number] -------- FINAL REPORT -------- Dictated By: Nat Martinez Dictated Date: 06/01/2024 19:09 ET Assigned Physician: Nat Martinez Reviewed and Electronically Signed By: Nat Martinez Signed Date: 06/02/2024 16:33 ET Workstation ID: [id number] Transcribed By: Self Edit Transcribed Date: 06/01/2024 [...] hemorrhage, mass, or mass effect. POS - [id number] -------- FINAL REPORT -------- Dictated By: Nat Martinez Dictated Date: 06/01/2024 19:09 ET Assigned Physician: Nat Martinez Reviewed and Electronically Signed By: Nat Martinez Signed Date: 06/02/2024 16:33 ET Workstation ID: [id number] Transcribed By: Self Edit Transcribed Date: 06/01/2024 19:36 ET Lazaro Villa MD IMG MRI PROCEDURES Final Result * POC RAPID INFLUENZA A&B, Molecular (05/23/2024 2:10 PM EST) Pathologist [facility] Rapid Influenza A Negative Negative Rapid Influenza B Negative Negative Internal Control Pass Yes Yes Swab Nasopharyngeal structure / Unknown 05/23/2024 2:10 PM EST Roderick KULKARNI POINT OF CARE TEST ENTER/EDIT OR DERABLES Final Result * (ABNORMAL) Poc Rapid [id number], MOLECULAR (05/23/2024 2:10 PM EST) [facility] COVID-19/SARS- COV-2 Rapid POC Positive(A ) Negative Internal Control Pass Yes Yes Swab Nasopharyngeal structure / Unknown 05/23/2024 2:10 PM EST us Roderick KULKARNI POINT OF CARE TEST ENTER/EDIT OR DERABLES Final Result * CT Abdomen Pelvis w Contrast (05/20/2024 10:05 AM EST) Anatomical Region Laterality Modality Body Computed Tomogra phy 05/20/2024 3:58 PM EST Impressions 05/20/2024 4:12 PM EST Impression: 1. ??No acute intra-abdominal or intrapelvic process. ??No CT evidence of mass lesions. 2. Right ovarian cyst and left ovarian follicle -------- FINAL REPORT -------- Dictated By: Theodore Dawson Dictated Date: 05/20/2024 15:58 ET Assigned Physician: Theodore Dawson Reviewed and Electronically Signed By: Theodore Dawson Signed Date: 05/20/2024 16:12 ET Workstation ID: [id number] Transcribed By: Self Edit Transcribed Date: 05/20/2024 15:58 ET Narrative 05/20/2024 4:[address] abdomen and pelvis with intravenous contrast HISTORY:unintentional weight loss COMPARISON:CT abdomen and pelvis from 01/27/2020 Technique: Multiple contiguous axial images of the abdomen and pelvis are obtained with the administration of 100 cc of ISOVUE 370 intravenous contrast. Images were reformatted in coronal and sagittal planes. ??Radiation dosage is 14.77mGy Findings: Mediastinum: The apex of the heart is within normal limits for size, trace pericardial effusion. Lung bases: Lung bases are clear. Upper Abdomen: The liver is decreased in attenuation when compared to the spleen. ??There are too small to characterize hypodensity within the liver. ??The gallbladder, pancreas and spleen are within normal limits. : The adrenal glands are within normal limits. The kidneys are unremarkable. ??Bladder is well distended. ??Uterus is anteverted. ??A few coarse calcifications are present within the anterior uterus. ??Right ovarian cyst measures 3.3 x 2.1 cm. ??Left ovarian follicle measures 1.7 cm. Lower GI: The bowel is without obstruction, or inflammation. There is no free air or free fluid. The appendix and terminal ileum are within normal limits. No pathologically enlarged lymph nodes are identified within the abdomen or pelvis. Vascular: Mild atherosclerosis of the abdominal aorta. MSK: Moderate degenerative changes of the lumbar spine. ??Tiny fat-containing umbilical hernia. Procedure Note Theodore Dawson MD - 05/20/2024 CT abdomen and pelvis with intravenous contrast HISTORY:unintentional weight loss COMPARISON:CT abdomen and pelvis from 01/27/2020 Technique: Multiple contiguous axial images of the abdomen and pelvis areobtained with the administration of 100 cc of ISOVUE 370 intravenouscontrast. Images were reformatted in coronal and sagittal planes.Radiation dosage is 14.77mGy Findings: Mediastinum: The apex of the heart is within normal limits for size, tracepericardial effusion. Lung bases: Lung bases are clear. Upper Abdomen: The liver is decreased in attenuation when compared to thespleen. There are too small to characterize hypodensity within the liver.The gallbladder, pancreas and spleen are within normal limits. : The adrenal glands are within normal limits. The kidneys areunremarkable. Bladder is well distended. Uterus is anteverted. A fewcoarse calcifications are present within the anterior uterus. Rightovarian cyst measures 3.3 x 2.1 cm. Left ovarian follicle measures 1.7cm. Lower GI: The bowel is without obstruction, or inflammation. There is nofree air or free fluid. The appendix and terminal ileum are within normallimits. No pathologically enlarged lymph nodes are identified within theabdomen or pelvis. Vascular: Mild atherosclerosis of the abdominal aorta. MSK: Moderate degenerative changes of the lumbar spine. Tinyfat-containing umbilical hernia. IMPRESSION: Impression: 1. No acute intra-abdominal or intrapelvic process. No CT evidence ofmass lesions. 2. Right ovarian cyst and left ovarian follicle -------- FINAL REPORT -------- Dictated By: Theodore Dawson Dictated Date: 05/20/2024 15:58 ET Assigned Physician: Theodore Dawson Reviewed and Electronically Signed By: Theodore Dawson Signed Date: 05/20/2024 16:12 ET Workstation ID: [id number] Transcribed By: Self Edit Transcribed Date: 05/20/2024 15:58 ET us Lazaro Villa MD IM CT PROCEDURES Final R esult * Chavarria urine culture tube (05/18/2024 12:55 PM EST) Extra Tube Hold for add-ons. 05/18/2024 3:01 PM EST [facility] Comment:Auto resulted. Urine Urine specimen obtained by clean catch procedure / Unknown Non-blood Collection / Unknown 05/18/2024 12:55 PM EST 05/18/2024 12:55 PM EST Lazaro Villa MD LAB URINE ORDERABLES Zeina l Result Performing Organization Address [facility] de Phone Number [facility] [address] [place] [address], [place] [phone] * HIV 1,2 antibody, p24 antigen with reflex to differentiation (05/18/2024 11:44 AM EST) [facility] HIV Combo AB/AG Negative Negative LAB CHEMISTRY METHOD 05/18/2024 3:24 PM EST [facility] Blood Venous blood specimen / Unknown Venipuncture / Unknown 05/18/2024 11:44 AM EST 05/18/2024 11:44 AM EST Narrative [facility] - 05/18/2024 3:24 PM EST This assay is a 4th generation assay allowing for earlier detection of HIV infection by detecting the presence of the HIV-1 p24 antigen as well as the traditional antibodies to HIV type 1 (including group O) and type 2. ??Use of a 4th generation assay is the current CDC recommendation for HIV screening. Lazaro Villa MD LAB BLOOD ORDERABLES Zeina l Result Performing Organization Address [facility] Co de Phone Number [facility] [address] [place] [address], [place] [phone] * (ABNORMAL) Urinalysis with reflex microscopic and culture (05/18/2024 11:44 AM EST) [facility] [place] Urine 1.020 1.003 - 1.030 LAB URINALYSIS - AUTOMATED METHOD 05/18/2024 2:42 PM EST [facility] pH, Urine 7.5 5.0 - 8.0 pH LAB URINALYSIS - AUTOMATED METHOD 05/18/2024 2:42 PM [facility] Leukocytes, Urine Moderate(A) Negative LAB URINALYSIS - AUTOMATED METHOD 05/18/2024 2:42 PM [facility] Nitrite, Urine Negative Negative LAB URINALYSIS - AUTOMATED METHOD 05/18/2024 2:42 PM [facility] Protein, Urine Negative <=Trace mg/dL LAB URINALYSIS - AUTOMATED METHOD 05/18/2024 2:42 PM [facility] Glucose, Urine Negative Negative mg/dL LAB URINALYSIS - AUTOMATED METHOD 05/18/2024 2:42 PM [facility] Ketones, Urine Negative Negative mg/dL LAB URINALYSIS - AUTOMATED METHOD 05/18/2024 2:42 PM [facility] Urobilinogen , Urine 1.0 0.2 - 1.0 mg/dL LAB URINALYSIS - AUTOMATED METHOD 05/18/2024 2:42 PM [facility] Bilirubin, Urine Negative Negative LAB URINALYSIS - AUTOMATED METHOD 05/18/2024 2:42 PM [facility] Blood, Urine Negative Negative LAB URINALYSIS - AUTOMATED METHOD 05/18/2024 2:42 PM [facility] RBC, Urine 4.6(H) 0 - 4 /HPF LAB URINALYSIS - AUTOMATED METHOD 05/18/2024 2:42 PM [facility] WBC, Urine 5.6(H) 0 - 4 /HPF LAB URINALYSIS - AUTOMATED METHOD 05/18/2024 2:42 PM [facility] Squamous Epithelial, Urine 59 0 - 60 /LPF LAB URINALYSIS - AUTOMATED METHOD 05/18/2024 2:42 PM [facility] Bacteria, Urine Negative Negative /HPF LAB URINALYSIS - AUTOMATED METHOD 05/18/2024 2:42 PM [facility] Hyaline Casts, Urine 0.0 0 - 3 /LPF LAB URINALYSIS - AUTOMATED METHOD 05/18/2024 2:42 PM [facility] Urine Urine specimen obtained by clean catch procedure / Unknown Non-blood Collection / Unknown 05/18/2024 11:44 AM EST 05/18/2024 11:44 AM EST Lazaro Villa MD LAB URINE ORDERABLES Zeina l Result [facility] [address] [place] [address], * (ABNORMAL) CBC auto differential (05/18/2024 11:44 AM EST) WBC 6.9 4.8 - 10.8 K/mcL LAB HEMETOLOGY METHOD 05/18/2024 2:31 PM [facility] RBC 4.80 3.80 - 4.80 M/mcL LAB HEMETOLOGY METHOD 05/18/2024 2:31 PM [facility] Hemoglobin 14.1 11.5 - 16.0 g/dL LAB HEMETOLOGY METHOD 05/18/2024 2:31 PM [facility] Hematocrit 43.5 35.0 - 47.0 % LAB HEMETOLOGY METHOD 05/18/2024 2:31 PM [facility] MCV 91.4 79.0 - 98.0 FL LAB HEMETOLOGY METHOD 05/18/2024 2:31 PM [facility] MCH 29.6 27.0 - 32.0 pcg LAB HEMETOLOGY METHOD 05/18/2024 2:31 PM [facility] MCHC 32.4 32.0 - 37.0 g/dL LAB HEMETOLOGY METHOD 05/18/2024 2:31 PM [facility] RDW 12.7 11.0 - 15.0 % LAB HEMETOLOGY METHOD 05/18/2024 2:31 PM [facility] Platelets 331 130 - 400 K/mcL LAB HEMETOLOGY METHOD 05/18/2024 2:31 PM [facility] MPV 11.7(H) 7.0 - 11.0 [place] LAB HEMETOLOGY METHOD 05/18/2024 2:31 PM [facility] NRBC 0.0 <1.0 % LAB HEMETOLOGY METHOD 05/18/2024 2:31 PM [facility] NRBC Absolute 0.00 <0.10 K/mcL LAB HEMETOLOGY METHOD 05/18/2024 2:31 PM [facility] Neutrophils Relative 79.0 % LAB HEMETOLOGY METHOD 05/18/2024 2:31 PM [facility] Lymphocytes Relative 13.2 % LAB HEMETOLOGY METHOD 05/18/2024 2:31 PM [facility] Monocytes Relative 7.0 % LAB HEMETOLOGY METHOD 05/18/2024 2:31 PM [facility] Eosinophils Relative 0.3 % LAB HEMETOLOGY METHOD 05/18/2024 2:31 PM [facility] Basophils Relative 0.4 % LAB HEMETOLOGY METHOD 05/18/2024 2:31 PM [facility] Immature Granulocytes Relative 0.1 % LAB HEMETOLOGY METHOD 05/18/2024 2:31 PM [facility] Neutrophils Absolute 5.45 1.50 - 7.00 K/mcL LAB HEMETOLOGY METHOD 05/18/2024 2:31 PM [facility] Lymphocytes Absolute 0.91(L) 1.00 - 5.00 K/mcL LAB HEMETOLOGY METHOD 05/18/2024 2:31 PM [facility] Monocytes Absolute 0.48 0.20 - 1.00 K/mcL LAB HEMETOLOGY METHOD 05/18/2024 2:31 PM [facility] Eosinophils Absolute 0.02 0.00 - 0.50 K/mcL LAB HEMETOLOGY METHOD 05/18/2024 2:31 PM EST [facility] Basophils Absolute 0.03 0.00 - 0.20 K/[facility] LAB HEMETOLOGY METHOD 05/18/2024 2:31 PM [facility] Immature Granulocytes Absolute 0.01 0.00 - 0.03 K/[facility] LAB HEMETOLOGY METHOD 05/18/2024 2:31 PM [facility] Blood Venous blood specimen / Unknown Venipuncture / Unknown 05/18/2024 11:44 AM EST 05/18/2024 11:44 AM EST Lazaro Villa MD LAB BLOOD ORDERABLES Zeina l Result Performing Organization Address [facility]/ZIP Co de Phone Number [facility] [address] [place] [address], [place] [phone] * Culture urine (05/18/2024 11:44 AM EST) Pathologist [facility] Culture, Urine 50,000-99,000 CFU/mL Mixed urogenital carter, no uropathogens present. Suggest repeat specimen if clinically indicated. 05/20/2024 2:17 PM [facility] Urine Urine specimen obtained by clean catch procedure / Unknown Non-blood Collection / Unknown 05/18/2024 11:44 AM EST 05/18/2024 2:42 PM EST Lazaro Villa MD LAB MICROBIOLOGY - GENERA L ORDERABLES Final Result Performing Organization Address City/[facility]/ZIP Co de Phone Number [facility] [address] [place] [address], [place] [phone] * Creatine kinase (05/18/2024 11:44 AM EST) Total CK 133 22 - 269 unit/L LAB CHEMISTRY METHOD 05/18/2024 3:15 PM [facility] Blood Venous blood specimen / Unknown Venipuncture / Unknown 05/18/2024 11:44 AM EST 05/18/2024 11:44 AM EST Lazaro Villa MD LAB BLOOD ORDERABLES Zeina kayla Result [facility] [address] [place] [address], * (ABNORMAL) Comprehensive metabolic panel (05/18/2024 11:44 AM EST) Sodium 139 133 - 145 mmol/L LAB CHEMISTRY METHOD 05/18/2024 3:15 PM [facility] Potassium 4.6 3.5 - 5.5 mmol/L LAB CHEMISTRY METHOD 05/18/2024 3:15 PM [facility] Chloride 106 96 - 110 mmol/L LAB CHEMISTRY METHOD 05/18/2024 3:15 PM [facility] CO2 24 21 - 32 mmol/L LAB CHEMISTRY METHOD 05/18/2024 3:15 PM [facility] Anion Gap 9 3 - 11 LAB CHEMISTRY METHOD 05/18/2024 3:15 PM [facility] Glucose 114(H) 70 - 100 mg/dL LAB CHEMISTRY METHOD 05/18/2024 3:15 PM [facility] BUN 15 5 - 25 mg/dL LAB CHEMISTRY METHOD 05/18/2024 3:15 PM [facility] Creatinine 0.89 0.50 - 1.10 mg/dL LAB CHEMISTRY METHOD 05/18/2024 3:15 PM [facility] eGFR 78 >=60 mL/min/1. 73m2 LAB CHEMISTRY METHOD 05/18/2024 3:15 PM [facility] Comment:Calculation based on the??Chronic Kidney Disease Epidemiology Collaboration (CKD-EPI) equation refit??without adjustment for race. BUN/Creatinine Ratio 16.9 LAB CHEMISTRY METHOD 05/18/2024 3:15 PM [facility] Calcium 10.2 8.5 - 10.5 mg/dL LAB CHEMISTRY METHOD 05/18/2024 3:15 PM [facility] AST (SGOT) 33 10 - 42 unit/L LAB CHEMISTRY METHOD 05/18/2024 3:15 PM [facility] ALT (SGPT) 37 10 - 60 unit/L LAB CHEMISTRY METHOD 05/18/2024 3:15 PM [facility] Alkaline Phosphatase 98 42 - 121 unit/L LAB CHEMISTRY METHOD 05/18/2024 3:15 PM [facility] Total Protein 7.9 6.0 - 8.0 g/dL LAB CHEMISTRY METHOD 05/18/2024 3:15 PM [facility] Albumin 4.4 3.2 - 5.0 g/dL LAB CHEMISTRY METHOD 05/18/2024 3:15 PM [facility] Total Bilirubin 0.4 0.0 - 1.4 mg/dL LAB CHEMISTRY METHOD 05/18/2024 3:15 PM [facility] Blood Venous blood specimen / Unknown Venipuncture / Unknown 05/18/2024 11:44 AM EST 05/18/2024 11:44 AM EST us Lazaro Villa MD LAB BLOOD ORDERABLES Zeina l Result [facility] [address] [place] [address], * XR Chest 2 Views (05/18/2024 11:07 AM EST) Anatomical Region Laterality Modality Body Radiographic Cecilia ging 05/18/2024 1:33 PM EST Impressions 05/18/2024 1:35 PM EST No acute pulmonary pathology. -------- FINAL REPORT -------- Dictated By: Yumiko Hidalgo Dictated Date: 05/18/2024 13:33 ET Assigned Physician: Yumiko Hidalgo Reviewed and Electronically Signed By: Yumiko Hidalgo Signed Date: 05/18/2024 13:35 ET Workstation ID: [id number] Transcribed By: Self Edit Transcribed Date: 05/18/2024 [...] degenerative change of the spine. Procedure Note Yumkio Hidalgo MD - 05/18/2024 CHEST, TWO VIEWS [...] Signed Date: 05/18/2024 13:35 ET Workstation ID: [id number] Transcribed By: Self Edit Transcribed Date: 05/18/2024 13:33 ET us Lazaro Villa MD IMG XR PROCEDURES Final R esult * Treponema pallidum antibody with reflex to RPR and particle agglutination (03/31/2024 10:51 AM EST) T. Pallidum Antibodies Negative Negative LAB CHEMISTRY METHOD 03/31/2024 2:53 PM EST [facility] Blood Venous blood specimen / Unknown Venipuncture / Unknown 03/31/2024 10:51 AM EST 03/31/2024 10:51 AM EST us Gonsalo Rush NP LAB BLOOD ORDERABLES Final Res ult Performing Organization Address [facility]/ZIP Co de Phone Number [facility] [address] [place] [address], * Borrelia burgdorferi antibody (03/31/2024 10:51 AM EST) [facility] Lyme Ab Negative Negative LAB CHEMISTRY METHOD 04/01/2024 8:17 AM EST [facility] Comment: No laboratory evidence of infection with B. burgdorferi (Lyme disease). Negative results may occur in patients recently infected (<=14 days) with B. burgdorferi. ??If recent infection is suspected, repeat testing on a new sample collected in 7-14 days is recommended. Blood Venous blood specimen / Unknown Venipuncture / Unknown 03/31/2024 10:51 AM EST 03/31/2024 10:51 AM EST us Gonsalo Rush NP LAB BLOOD ORDERABLES Final Res ult Performing Organization Address [facility] Co de Phone Number [facility] [address] [place] [address], * Thyroid stimulating hormone (03/31/2024 10:51 AM EST) [facility] TSH 0.65 0.40 - 4.00 mcIU/mL LAB CHEMISTRY METHOD 03/31/2024 2:42 PM EST [facility] Blood Venous blood specimen / Unknown Venipuncture / Unknown 03/31/2024 10:51 AM EST 03/31/2024 10:51 AM EST us Gonsalo Rush NP LAB BLOOD ORDERABLES Final Res ult [facility] [address] [place] [address], [place] [phone] * Hemoglobin A1c (03/31/2024 10:51 AM EST) Pathologist [facility] Hemoglobin A1C 5.8 <6.5 % LAB CHEMISTRY METHOD 03/31/2024 7:24 PM EST [facility] Mean Bld Glu Estim. 120 mg/dL LAB CHEMISTRY METHOD 03/31/2024 7:24 PM EST [facility] Blood Venous blood specimen / Unknown Venipuncture / Unknown 03/31/2024 10:51 AM EST 03/31/2024 10:51 AM EST us Gonsalo Rush NP LAB BLOOD ORDERABLES Final Res ult Performing Organization Address [facility]/ZIP Co de Phone Number [facility] [address] [place] [address], [place] [phone] * Vitamin B12 (03/31/2024 10:51 AM EST) [facility] Vitamin B-12 792 250 - 900 pcg/mL LAB CHEMISTRY METHOD 03/31/2024 2:55 PM EST [facility] Blood Venous blood specimen / Unknown Venipuncture / Unknown 03/31/2024 10:51 AM EST 03/31/2024 10:51 AM EST us Gonsalo Rush NP LAB BLOOD ORDERABLES Final Res ult Performing Organization Address City/[facility]/ZIP Co de Phone Number [facility] [address] [place] [address], [place] [phone] * MR Knee wo Contrast Left (03/24/2024 6:53 PM EST) Anatomical Region Laterality Modality Lower Extremities, Knee Left Magnetic Resonance 03/25/2024 12:4 5 PM EST Impressions 03/25/2024 1:05 PM EST Suprapatellar fat pad edema as described, possibly related to impingement. ??No evidence of foreign body. -------- FINAL REPORT -------- Dictated By: Michael Chauhan Dictated Date: 03/25/2024 12:45 ET Assigned Physician: Michael Chauhan Reviewed and Electronically Signed By: Michael Chauhan Signed Date: 03/25/2024 13:05 ET Workstation ID: [id number] Transcribed By: Self Edit Transcribed Date: 03/25/2024 12:45 ET Narrative 03/25/2024 1:05 PM EST History: Prior history of foreign body, previously removed. ??History of chronic intermittent pain. MRI of the left knee: A departmental standard knee MRI protocol was used. FINDINGS: Correlation is made with an ultrasound of the soft tissues performed 01/29/2024 as well as plain films of the knee dated 12/22/2023. ??No foreign body was identified on either of those examinations. ??The anterior cruciate ligament, posterior cruciate ligament, menisci and collateral ligaments are intact. ??There is very slight irregularity of the articular surface of the medial femoral condyle immediately overlying the free edge of the posterior horn of the meniscus consistent with some very minimal focal degenerative change. ??Otherwise the articular surfaces are intact. There is some edema in the suprapatellar fat pad superior to the patella and extending along the medial superior margin. ??This could potentially be due to fat pad impingement although the location is unusual. ??The etiology is uncertain. ??No foreign bodies or susceptibility artifacts are identified. ??The patella is normally located. There is no joint effusion. ??There is a small but elongated multiloculated Monsivais's cyst without evidence of rupture. Procedure Note Michael Chauhan MD - 03/25/2024 History: Prior history of foreign body, previously removed. History ofchronic intermittent pain. MRI of the left knee: A departmental standard knee MRI protocol wasused. FINDINGS: Correlation is made with an ultrasound of the soft tissuesperformed 01/29/2024 as well as plain films of the knee dated 12/22/2023.No foreign body was identified on either of those examinations. Theanterior cruciate ligament, posterior cruciate ligament, menisci andcollateral ligaments are intact. There is very slight irregularity of thearticular surface of the medial femoral condyle immediately overlying thefree edge of the posterior horn of the meniscus consistent with some veryminimal focal degenerative change. Otherwise the articular surfaces areintact. There is some edema in the suprapatellar fat pad superior to the patellaand extending along the medial superior margin. This could potentially bedue to fat pad impingement although the location is unusual. The etiologyis uncertain. No foreign bodies or susceptibility artifacts areidentified. The patella is normally located. There is no joint effusion. There is a small but elongated multiloculatedBaker's cyst without evidence of rupture. IMPRESSION: Suprapatellar fat pad edema as described, possibly related to impingement.No evidence of foreign body. -------- FINAL REPORT -------- Dictated By: Michael Chauhan Dictated Date: 03/25/2024 12:45 ET Assigned Physician: Michael Chauhan Reviewed and Electronically Signed By: Michael Chauhan Signed Date: 03/25/2024 13:05 ET Workstation ID: [id number] Transcribed By: Self Edit Transcribed Date: 03/25/2024 12:45 ET Roderick KULKARNI IMG MRI PROCEDURES Final Result * XR Lumbar Spine 4+ Views (03/18/2024 9:38 AM EST) Anatomical Region Laterality Modality Spine, L-spine Radiographic Cecilia ging 03/18/2024 7:17 PM EST Impressions 03/18/2024 7:23 PM EST Scoliosis and multilevel degenerative changes. POS - [id number] -------- FINAL REPORT -------- Dictated By: Nat Martinez Dictated Date: 03/18/2024 19:17 ET Assigned Physician: Nat Martinez Reviewed and Electronically Signed By: Nat Martinez Signed Date: 03/18/2024 19:23 ET Workstation ID: [id number] Transcribed By: Self Edit Transcribed Date: 03/18/2024 19:17 ET Narrative 03/18/2024 7:23 PM EST EXAM: Lumbar spine x-ray HISTORY: Lumbar pain. COMPARISON: None, correlation with CT abdomen and pelvis 01/27/2020 FINDINGS: 4 views of the lumbar spine were performed. 5 lumbar type vertebral bodies. Vertebral body heights are maintained. ??Mild to moderate levoscoliosis. ??Moderately severe loss of disc height with endplate spurring and sclerosis along the left side at L4-5. ??Mild disc space narrowing at L3-4 and L5-S1. ??Multilevel endplate spurring. ??No evidence of spondylolysis. ??Multilevel facet arthropathy, greater in the lower spine. ??No definite spondylolisthesis. Procedure Note Nat Martinez MD - 03/18/2024 EXAM: Lumbar spine x-ray HISTORY: Lumbar pain. COMPARISON: None, correlation with CT abdomen and pelvis 01/27/2020 FINDINGS: 4 views of the lumbar spine were performed. 5 lumbar type vertebral bodies. Vertebral body heights are maintained.Mild to moderate levoscoliosis. Moderately severe loss of disc heightwith endplate spurring and sclerosis along the left side at L4-5. Milddisc space narrowing at L3-4 and L5-S1. Multilevel endplate spurring. Noevidence of spondylolysis. Multilevel facet arthropathy, greater in thelower spine. No definite spondylolisthesis. IMPRESSION: Scoliosis and multilevel degenerative changes. POS - [id number] -------- FINAL REPORT -------- Dictated By: Nat Martinez Dictated Date: 03/18/2024 19:17 ET Assigned Physician: Nat Martinez Reviewed and Electronically Signed By: Nat Martinez Signed Date: 03/18/2024 19:23 ET Workstation ID: [id number] Transcribed By: Self Edit Transcribed Date: 03/18/2024 19:17 ET us Roderick KULKARNI IMG XR PROCEDURES Final Result * (ABNORMAL) Lipid panel (10/15/2023) LDL/HDL Ratio 3 0 - 4 Triglycerides 216(A) 0 - 150 mg/dL Cholesterol 187 0 - 200 mg/dL HDL 59 >=40 mg/dL LDL Cholesterol 85 0 - 100 mg/dL Blood Venous blood specimen / Unknown us Historical Provider LAB BLOOD ORDERABLES Zeina garza Result * [facility] SCREENING DIGITAL (06/22/2023 2:58 PM EDT) Anatomical Region Laterality Modality Mammography 06/22/2023 1:39 PM EDT Narrative 06/22/2023 2:[address] [facility] Diagnostic Imaging Department [address] [place] [address] Patient: ??CHRIS,AFIA ?/Age/Sex: 1970 - 53 - F Unit#: ??[id number] ? Location/Status: ??SPDIMAM/REG CLI ? Mnemonic/Ordering Site: ??DIGSC/SPMAM Ordering Physician: ??LAZARO VILLA MD [facility] Screening Digital - 06/22/23 - 1351 Report Status:Signed EXAM: [facility] Screening Digital EXAM DATE AND TIME: 06/22/2023 1:51 PM HISTORY: ??Annual screening COMPARISON: ??Multiple exams dating back to 2013 TECHNIQUE: Bilateral digital breast tomosynthesis was performed in the CC and MLO projections. Computer aided detection with Equidam 3D 3.1 was employed. TISSUE DENSITY: b. There are scattered areas of fibroglandular density. FINDINGS: No suspicious masses, grouped microcalcifications, or areas of architectural distortion are seen. The skin and vascularity are unremarkable. IMPRESSION: Stable mammographic appearance of the breasts. ??No evidence of malignancy is seen. A negative mammogram in the presence of a clinically suspicious palpable abnormality does not preclude the possibility of malignancy or alter the indications for biopsy. BI-RADS: ??Category 1: Negative RECOMMENDATION(S): 1: Routine screening mammogram BILATERAL in 1 year. 3341F, 7025F Dictating Physician: ??CYNTHIA KEY MD Electronically Signed by: ??CYNTHIA KEY MD Dic Date/Time: ??06/22/232 Sign date/Time: ??06/22/23 1849 Procedure Note Cynthia Key MD - 11/23/2023 [facility] Diagnostic Imaging Department [address] [place], [place] [id number] Patient: AFIA GARCIA /Age/Sex: 1970 - 53 - F Unit#: [id number] Location/Status: [facility] Mnemonic/Ordering Site: [facility] Ordering Physician: LAZARO VILLA MD [facility] Screening Digital - 06/22/23 - 1351 Report Status:Signed EXAM: [facility] Screening Digital EXAM DATE AND TIME: 06/22/2023 1:51 PM HISTORY: Annual screening COMPARISON: Multiple exams dating back to 2013 TECHNIQUE: Bilateral digital breast tomosynthesis was performed in the [facility] MLO projections. Computer aided detection with Equidam 3D 3.1was employed. TISSUE DENSITY: b. There are scattered areas of fibroglandular density. FINDINGS: No suspicious masses, grouped microcalcifications, or areas ofarchitectural distortion are seen. The skin and vascularity are unremarkable. IMPRESSION: Stable mammographic appearance of the breasts. No evidence of malignancyis seen. A negative mammogram in the presence of a clinically suspicious palpable abnormality does not preclude the possibility of malignancy or alter the indications for biopsy. BI-RADS: Category 1: Negative RECOMMENDATION(S): 1: Routine screening mammogram BILATERAL in 1 year. 3341F, 7025F Dictating Physician: CYNTHIA KEY MD Electronically Signed by: CYNTHIA KEY MD Dic Date/Time: 06/22/23 1457 Sign date/Time: 06/22/23 1458 Result [facility] Lazaro Villa MD IMG BI PROCEDURES Final R esult * Depression Screening (06/09/2023) [facility] Depression Screening Abstracted [facility] Provider HEALTH MAINTENANCE Final Result * Hepatitis C Screening (10/01/2022) [facility] Hepatitis C Screening Abstracted [facility] Provider HEALTH MAINTENANCE Final Result * Pap Smear (06/30/2022) [facility] Pap smear No Interpretation , Abstracted [facility] Provider HEALTH MAINTENANCE Final Result * Colonoscopy (06/26/2022) [facility] Colonoscopy No Interpretation , Abstracted Anatomical Region Laterality Modality Other [facility] Provider HEALTH MAINTENANCE Final Result from Last 3 Months or Most Recently Relevant to Health Maintenance Additional Health Concerns Infection Onset Date Last Indicated COVID-19 05/23/2024 05/23/2024 Insurance [employer] Care Teams Activities Manager Relationship Specialty Start Date End Date Lazaro Villa MD [address] [place] [address] PCP - General Internal Medicine 03/18/16
--- OUTSIDE RECORDS SUMMARY | 2024-06-10 09:51 | XMS_ITS | Encounter Summary ---
Author Organization [facility] [place] [address] Care Team Providers Care Motor Vehicle Inspector Name Role Phone Lazaro Fuentes MD Primary Care Provider [phone] Reason for Referral * Consultation (Routine) - Authorized Specialty Diagnoses / Procedures Referred By Mychal cardenas Referred To Contact Gastroenterology Diagnoses Unintended weight loss Lazaro Fuentes MD [address] [place] [address] Phone: tel: fax: Gastroenterology - [address] [place] [phone] Phone: tel: fax: Referral ID Status Reason Start Date Expiration Date Visits Requested Visits Authorized [id number] Authorized Specialty Services Required 05/18/2024 05/18/2025 1 1 * Imaging (Routine) - Closed Specialty Diagnoses / Procedures Referred By Mychal cardenas Referred To Contact Radiology Diagnoses Unintended weight loss Procedures CT Abdomen Pelvis w Contrast Lazaro Fuentes MD [address] [place] [address] Phone: tel: fax: CT Scan [address] Phone: tel: fax: Referral ID Status Reason Start Date Expiration Date Visits Re quested Visits Authorized [id number] Closed 05/18/2024 05/18/2025 1 1 * Consultation (Routine) - Authorized Specialty Diagnoses / Procedures Referred By Mychal cardenas Referred To Contact Neurology Diagnoses Family history of multiple sclerosis Muscle weakness Lazaro Fuentes MD [address] [place] [address] Phone: tel: fax: Oscra Eckert MD [address] [place] [phone] Phone: tel: fax: Referral ID Status Reason Start Date Expiration Date Visits Requested Visits Authorized [id number] Authorized Specialty Services Required 05/18/2024 05/18/2025 1 1 * Imaging (Routine) - Closed Specialty Diagnoses / Procedures Referred By Mychal cardenas Referred To Contact Radiology Diagnoses Family history of multiple sclerosis Muscle weakness Procedures MR Brain wo Contrast Lazaro Fuentes MD [address] [place] [address] Phone: tel: fax: Radiology Department [address] Phone: tel: fax: Referral ID Status Reason Start Date Expiration Date Visits Re quested Visits Authorized [id number] Closed 05/18/2024 07/17/2024 1 1 Reason for Visit * Reason Comments Joint Pain Back, knee,elbow, to es and hips Encounter Details Date Type Department Care Team (Late st Contact Info) Description 05/18/2024 9:45 AM EST Office Visit Internal Medicine - [address] [phone] Lazaro Fuentes MD [address] [place] [address] Diffuse arthralgia (Primary Dx); Family history of multiple sclerosis; Unintended weight loss; Muscle weakness Social History Tobacco Use Types Packs/Day Years [...] Sign Reading Time Taken Comments Blood Pressure 118/86 05/18/2024 9:55 AM EST Pulse 92 05/18/2024 9:55 AM EST Temperature - - Respiratory Rate - - Oxygen Saturation - - Inhaled Oxygen Concentration - - Weight 75.9 kg (167 lb 4.8 oz) 05/18/2024 9:55 A M EST Height 157.5 cm (5' 2 ) 05/18/2024 9:55 AM EST Body Mass Index 30.6 05/18/2024 9:55 AM EST documented in this encounter Ordered Prescriptions Prescription Sig Dispense Quantity Refills Last Filled Start Date End Date baclofen (LIORESAL) 20 mg tablet Take 1 tablet (20 mg total) by mouth 2 (two) times a day. 60 each 1 05/18/2024 05/19/2024 documented in this encounter Progress Notes * Lazaro Fuentes MD - 05/18/2024 9:45 AM EST CHIEF COMPLAINT: Chief Complaint Patient presents with Joint Pain Back, knee,elbow, toes and hips IDENTIFIER: Afia Garcia is a 53 y.o. old female. HPI Patient is a 53-year-old woman who presents to the office today for multiple joint pains. Patient follows me that she has had diffuse joint pains that started 5 to 6 months ago. Patient informs me that she did follow-up with the anesthesia assistant recently who did testing including checking for rheumatoid arthritis, Sjogren's and was told that she had fibromyalgia. I do not havethe official notes. She has been eval by different providers for multiple joint pains and underwent lab work which showed normal LUZ ELENA, ESR, Lyme, uric acid, rheumatoid factor testing. She had no leukocytosis, kidney function is normal. Her LFTs were initially elevated but upon recheck normalized. Her calcium levels areslightly elevated but on recheck with normalized. Her vitamin B12 levels were normal. Thyroid levels were normal. She is prediabetic with an A1c of 5.8. Syphilis testing was negative. She informs me that she followed up with the anesthesia assistant at [facility] (Dr. Escobedo) and underwent further testing and was told that she had fibromyalgia. No medications were started. However, she states that she does have muscle weakness in her thighs and legs. She states that she does have a family history of multiple sclerosis with a first cousin having multiple sclerosis. She has had x-ray done of her left knee, left hip which did not reveal any fracture or dislocation.Her x-ray of the lumbar spine done on 03/18/2024 showed scoliosis with multilevel degenerative changes. She has been seen by orthopedics and had an MRI of her left knee done on 03/24/2024 which showed suprapatellar fat pad edema, possibly due to impingement but no evidence of foreign body. She informs me that she is undergoing physical therapy for her lower back. She informs me that she has had some unintended weight loss about 6 months ago. She denies any dysphagia, odynophagia, early satiety, blood in the stools, dark stools, nausea, vomiting, diarrhea, constipation, shortness of breath, chest pain. She does vape nicotine and smokes marijuana. She has had screening colonoscopy done on 06/26/2022 which showed internal hemorrhoids. Repeat colonoscopy 10 years. Last mammogram was done on 06/22/2023 showed no evidence of malignancy. She does have a history of IBS with constipation, bloating GERD for which she saw gastroenterology on 02/12/2024. She does have underlying ADHD, depression, anxiety, insomnia and follows up with psychiatry externally. She does have a history of former cocaine abuse and crack cocaine use but states that she is no longer using these illicit drugs. ROS: GENERAL: See HPI HEENT: No changes in hearing or vision, nose bleeds or other nasal problems RESPIRATORY: No cough, wheezing or shortness of breath CARDIOVASCULAR: No chest pain, leg swelling or palpitations GI: See HPI NECK: No lumps, goiter, pain or significant neck swelling : No dysuria, frequency or incontinence MUSCULOSKELETAL: See HPI SKIN: No lesions, rash or itching NEURO: See HPI PAST MEDICAL HISTORY: Patient Active Problem List Diagnosis Date Noted Prediabetes 04/01/2024 Former smoker 12/23/2023 History of seizure 12/23/2023 History of uterine fibroid 12/23/2023 Hiatal hernia 07/06/2023 Steatosis of liver 07/06/2023 History of COVID-19 05/14/2022 Irritable bowel syndrome with constipation 03/09/2020 Chronic nonintractable headache 03/09/2020 Restless leg syndrome 11/27/2016 Mixed hyperlipidemia 04/01/2016 Cocaine abuse in remission ([facility]) 12/06/2013 Anxiety 09/28/2012 Insomnia 09/28/2012 Compound nevus [...] artery disease Mother's side uncle 55 of [place] Colon cancer Neg Hx Ovarian cancer Neg Hx Breast cancer Neg Hx Family Status Relation Name Status Mother Alive htn Sister (Not Specified) Brother (Not Specified) Mother's mia (Not Specified) Neg Hx (Not Specified) Father Alive dm, htn No partnership data on file MEDICATIONS DISCONTINUED/REORDERED: Medications Discontinued During This Encounter Medication Reason atomoxetine (STRATTERA) 60 mg capsule FLUoxetine (PROzac) 20 mg capsule gabapentin (NEURONTIN) 100 mg capsule Dose adjustment lisdexamfetamine (VYVANSE) 10 MG capsule methylphenidate HCl (CONCERTA ORAL) Therapy completed multivit with minerals/lutein (MULTIVITAMIN 50 PLUS ORAL) nutritional supplement-fiber 0.05 gram-1 kcal/mL liquid simethicone (MYLICON,GAS-X) 125 mg capsule ACTIVE MEDICATIONS: Outpatient Medications Marked as Taking for the 05/18/24 encounter (Office Visit) with Lazaro Fuentes MD Medication Sig Dispense Refill albuterol HFA (Ventolin HFA) 90 mcg/actuation inhaler INHALE 2 PUFFS INTO THE LUNGS 4 TIMES DAILY NEEDED FOR COUGH OR WHEEZING. atorvastatin (LIPITOR) 40 mg tablet Take 1 tablet (40 mg total) by mouth 1 (one) time each day. busPIRone (BUSPAR) 15 mg tablet Take 1.5 tablets (22.5 mg total) by mouth 2 (two) times a day. cetirizine (ZyrTEC) 10 mg tablet Take 1 tablet (10 mg total) by mouth 1 (one) time each day. famotidine (PEPCID) 20 mg tablet Take 1 tablet (20 mg total) by mouth 2 (two) times a day. fluticasone propionate (FLONASE) 50 mcg/actuation nasal spray Administer 1 spray into affected nostril(s). folic acid (FOLVITE) 800 mcg tablet Take 1 tablet (800 mcg total) by mouth 1 (one) time each day. gabapentin (NEURONTIN) 300 mg capsule Take 2 capsules (600 mg total) by mouth 2 (two) times a day. lidocaine (LIDODERM) 5 % patch Apply 1 patch topically 1 (one) time each day. 28 patch 1 lurasidone (LATUDA) 20 mg tablet Take 1 tablet (20 mg total) by mouth 1 (one) time each day in the evening. melatonin 3 mg capsule Take by mouth. mirtazapine (REMERON) 15 mg tablet Take 1 tablet (15 mg total) by mouth at bedtime. pramipexole (MIRAPEX) 1.5 mg tablet Take 1.5 tablets (2.25 mg total) by mouth 1 (one) time each day. simethicone (Gas Relief, simethicone,) 180 mg capsule Take 1 capsule (180 mg total) by mouth 2 (two) times a day. tryptophan 500 mg capsule Take by mouth. ALLERGIES: Allergies Allergen Reactions Other Seasonal allergies PHYSICAL EXAM: Visit Vitals BP 118/86 Pulse 92 Ht 1.575 m (62 ) Wt 75.9 kg (167 lb 4.8 oz) BMI 30.60 kg/m?? OB Status Postmenopausal Smoking Status Former BSA 1.77 m?? EYES: PERRL, conjunctiva and sclera normal NOSE/SINUS: negative MOUTH/THROAT: no erythema or exudates NECK: negative HEART: regular rate, regular rhythm and no murmur LUNG: clear to auscultation LYMPH NODES: grossly normal ABDOMEN: Bowel sounds normoactive, no bruits, soft, non-tender, without organomegaly or palpable masses EXTREMITIES: No edema and Normal pulses bilaterally. NEURO: Awake, alert and oriented x 3, Normal gait and No involuntary motions. Cranial nerves II-XIIgrossly intact, reflexes symmetrical. SKIN: negative Assessment & Plan Diffuse arthralgia She did follow-up with rheumatology but I do not have the official notes or labs from them but states that she was diagnosed with fibromyalgia. Given her diffuse joint pains and muscle weakness; willcheck her CPK levels. I have also referred her to neurology given family history of multiple sclerosis with her recent muscle weakness. I have also ordered an MRI of the brain for further evaluation. Orders: Creatine kinase; Future Family history of multiple sclerosis I have referred the patient to our [facility] to evaluate for possible MS given her muscle weakness. I will do an MRI of the brain. Orders: MR Brain wo Contrast; Future Ambulatory referral to Neurology; Future Unintended weight loss Unclear etiology at this moment. Given unintentional weight loss, we will check a CBC, CMP, HIV, urinalysis, chest x-ray, CT abdomen and pelvis. I have refer the patient to gastroenterology for whichher unintentional weight loss as well. Orders: CBC and differential; Future Comprehensive metabolic panel; Future HIV 1,2 antibody, p24 antigen with reflex to differentiation; Future Urinalysis with reflex microscopic and culture; Future XR Chest 2 Views; Future CT Abdomen Pelvis w Contrast; Future Ambulatory referral to Gastroenterology; Future Muscle weakness We will be checking a CPK levels. Referral to neurology has been placed. Orders: MR Brain wo Contrast; Future Ambulatory referral to Neurology; Future Creatine kinase; Future Today's documentation was made using voice recognition software.This note may contain grammatical errors secondary to this software. documented in this encounter Plan of Treatment Upcoming Encounters Date Type Department Care Team (Late st Contact Info) Description 06/14/2024 1:00 PM EDT Office Visit [facility] [place] [address] [facility] [address] [place] [phone] Oscar Eckert MD [address] [facility] [address] [place] [phone] 06/14/2024 3:30 PM EDT Appointment Radiology Department - [address] [phone] 06/15/2024 10:30 AM EDT Office Visit Internal Medicine - [facility] [address] [place] [address] Lazaro Fuentes MD [address] [place] [phone] 06/17/2024 7:00 AM EDT Evaluation [facility] [place] [address] [facility] [address] [place] [phone] Mary Suarez PT 06/24/2024 8:00 AM EDT Office Visit Gastroenterology - [address] [place] [phone] Farhana Potter PA [address] [facility] [address] [place] [address] 07/04/2024 10:00 AM EDT Office Visit Urogynecology [phone] [place] [phone] Daxa Khan MD [address] [facility] [address] [place] [address] Scheduled Referrals Name Type Priority Associated Diagnoses Order Schedule Ambulatory referral to Neurology Outpatient Referral Routine Family history of multiple sclerosis Muscle weakness 1 Occurrences starting 05/18/2024 until 05/18/2025 Ambulatory referral to Gastroenterology Outpatient Referral Routine Unintended weight loss 1 Occurrences starting 05/18/2024 until 05/18/2025 documented as of this encounter Results * MR Brain wo [...] hemorrhage, mass, or mass effect. POS - [id number] -------- FINAL REPORT -------- Dictated By: Nat Martinez Dictated Date: 06/01/2024 19:09 ET Assigned Physician: Nat Martinez Reviewed and Electronically Signed By: Nat Martinez Signed Date: 06/02/2024 16:33 ET Workstation ID: [id number] Transcribed By: Self Edit Transcribed Date: 06/01/2024 [...] hemorrhage, mass, or mass effect. POS - [id number] -------- FINAL REPORT -------- Dictated By: Nat Martinez Dictated Date: 06/01/2024 19:09 ET Assigned Physician: Nat Martinez Reviewed and Electronically Signed By: Juan, Nat Signed Date: 06/02/2024 16:33 ET Workstation ID: [id number] Transcribed By: Self Edit Transcribed Date: 06/01/2024 19:36 ET Lazaro Fuentes MD IMG MRI PROCEDURES Final Result * CT Abdomen Pelvis w [...] Signed Date: 05/20/2024 16:12 ET Workstation ID: [id number] Transcribed By: Self Edit Transcribed Date: 05/20/2024 [...] Signed Date: 05/20/2024 16:12 ET Workstation ID: [id number] Transcribed By: Self Edit Transcribed Date: 05/20/2024 15:58 ET us Lazaro Fuentes MD IMG CT PROCEDURES Final R esult * Creatine kinase (05/18/2024 11:44 AM EST) Total CK 133 22 - 269 unit/L LAB CHEMISTRY METHOD 05/18/2024 3:15 PM EST [facility] Blood Venous blood specimen / Unknown Venipuncture / Unknown 05/18/2024 11:44 AM EST 05/18/2024 11:44 AM EST us Lazaro Fuentes MD LAB BLOOD ORDERABLES Zeina l Result Performing Organization Address [facility] de Phone Number [facility] [address] [place] [address], [place] [phone] * HIV 1,2 antibody, p24 antigen with reflex to differentiation (05/18/2024 11:44 AM EST) Pathologist [facility] HIV Combo AB/AG Negative Negative LAB CHEMISTRY METHOD 05/18/2024 3:24 PM EST [facility] Blood Venous blood specimen / Unknown Venipuncture / Unknown 05/18/2024 11:44 AM EST 05/18/2024 11:44 AM EST Narrative [facility] - 05/18/2024 3:24 PM EST This assay is a 4th generation assay allowing for earlier detection of HIV infection by detecting the presence of the HIV-1 p24 antigen as well as the traditional antibodies to HIV type 1 (including group O) and type 2. ??Use of a 4th generation assay is the current CDC recommendation for HIV screening. us Lazaro Fuentes MD LAB BLOOD ORDERABLES Zeina l Result Performing Organization Address [facility] Co de Phone Number [facility] [address] [place] [address], [place] [phone] * (ABNORMAL) Comprehensive metabolic panel (05/18/2024 11:44 AM EST) Sodium 139 133 - 145 mmol/L LAB CHEMISTRY METHOD 05/18/2024 3:15 PM [facility] Potassium 4.6 3.5 - 5.5 mmol/L LAB CHEMISTRY METHOD 05/18/2024 3:15 PM [facility] Chloride 106 96 - 110 mmol/L LAB CHEMISTRY METHOD 05/18/2024 3:15 PM [facility] CO2 24 21 - 32 mmol/L LAB CHEMISTRY METHOD 05/18/2024 3:15 PM [facility] Anion Gap 9 3 - 11 LAB CHEMISTRY METHOD 05/18/2024 3:15 PM [facility] Glucose 114(H) 70 - 100 mg/dL LAB CHEMISTRY METHOD 05/18/2024 3:15 PM [facility] BUN 15 5 - 25 mg/dL LAB CHEMISTRY METHOD 05/18/2024 3:15 PM [facility] Creatinine 0.89 0.50 - 1.10 mg/dL LAB CHEMISTRY METHOD 05/18/2024 3:15 PM [facility] eGFR 78 >=60 mL/min/1. 73m2 LAB CHEMISTRY METHOD 05/18/2024 3:15 PM [facility] Comment:Calculation based on the??Chronic Kidney Disease Epidemiology Collaboration (CKD-EPI) equation refit??without adjustment for race. BUN/Creatinine Ratio 16.9 LAB CHEMISTRY METHOD 05/18/2024 3:15 PM [facility] Calcium 10.2 8.5 - 10.5 mg/dL LAB CHEMISTRY METHOD 05/18/2024 3:15 PM [facility] AST (SGOT) 33 10 - 42 unit/L LAB CHEMISTRY METHOD 05/18/2024 3:15 PM [facility] ALT (SGPT) 37 10 - 60 unit/L LAB CHEMISTRY METHOD 05/18/2024 3:15 PM EST [facility] Alkaline Phosphatase 98 42 - 121 unit/L LAB CHEMISTRY METHOD 05/18/2024 3:15 PM EST [facility] Total Protein 7.9 6.0 - 8.0 g/dL LAB CHEMISTRY METHOD 05/18/2024 3:15 PM EST [facility] Albumin 4.4 3.2 - 5.0 g/dL LAB CHEMISTRY METHOD 05/18/2024 3:15 PM EST [facility] Total Bilirubin 0.4 0.0 - 1.4 mg/dL LAB CHEMISTRY METHOD 05/18/2024 3:15 PM [facility] Blood Venous blood specimen / Unknown Venipuncture / Unknown 05/18/2024 11:44 AM EST 05/18/2024 11:44 AM EST Lazaro Fuentes MD LAB BLOOD ORDERABLES Zeina l Result [facility] [address] [place] [address], * XR Chest 2 Views (05/18/2024 11:07 AM EST) Anatomical Region Laterality Modality Body Radiographic Cecilia ging 05/18/2024 1:33 PM EST Impressions 05/18/2024 1:35 PM EST No acute pulmonary pathology. -------- FINAL REPORT -------- Dictated By: Yumiko Hidalgo Dictated Date: 05/18/2024 13:33 ET Assigned Physician: Yumiko Hidalgo Reviewed and Electronically Signed By: Yumiko Hidalgo Signed Date: 05/18/2024 13:35 ET Workstation ID: [id number] Transcribed By: Self Edit Transcribed Date: 05/18/2024 [...] Yumiko Hidalgo Reviewed and Electronically Signed By: Ymuiko Hidalgo Signed Date: 05/18/2024 13:35 ET Workstation ID: [id number] Transcribed By: Self Edit Transcribed Date: 05/18/2024 13:33 ET Lazaro Fuentes MD IMG XR PROCEDURES Final R esult documented in this encounter Visit Diagnoses Diagnosis Diffuse arthralgia- Primary Family history of multiple sclerosis Family history of other neurological diseases Unintended weight loss Muscle weakness Muscle weakness (generalized) Unintended weight loss Unintended weight loss Family history of multiple sclerosis Family history of other neurological diseases Muscle weakness Muscle weakness (generalized) documented in this encounter Discontinued Medications Medication Sig Discontinue Reason Start Date End Da te atomoxetine (STRATTERA) 60 mg capsule Take 40 mg by mouth. 08/26/2023 05/18/2024 FLUoxetine (PROzac) 20 mg capsule Take 1 capsule (20 mg total) by mouth 1 (one) time each day. 06/09/2023 05/18/2024 gabapentin (NEURONTIN) 100 mg capsuleIndications:Chika ropathy Take 1 capsule (100 mg total) by mouth at bedtime. For neuropathy in addition to 300 mg dose Dose adjustment 03/31/2024 05/18/2024 lisdexamfetamine (VYVANSE) 10 MG capsule 1 (one) time each day. methylphenidate HCl (CONCERTA ORAL) Take 30 mg by mouth 1 (one) time each day. Therapy completed 05/18/2024 multivit with minerals/lutein (MULTIVITAMIN 50 PLUS ORAL) Take by mouth. 05/18/2024 nutritional supplement-fiber 0.05 gram-1 kcal/mL liquid Take by mouth. 05/18/2024 simethicone (MYLICON,GAS-X) 125 mg capsule Take 1 capsule (125 mg total) by mouth 4 (four) times a day. 07/31/2023 05/18/2024 documented as of this encounter Historical Medications * This list may reflect changes made after this encounter. mirtazapine (REMERON) 15 mg tablet Take 1 tablet (15 mg total) by mouth at bedtime. 04/14/2024 lurasidone (LATUDA) 20 mg tablet Take 1 tablet (20 mg total) by mouth 1 (one) time each day in the evening. 05/15/2024 added in this encounter Care Teams Motor Vehicle Inspector Relationship Specialty Start Date End Date Lazaro Fuentes MD [address] [place] [id number] PCP - General Internal Medicine 03/18/16 documented as of this encounter
--- OUTSIDE RECORDS SUMMARY | 2024-06-10 09:51 | XMS_ITS | Encounter Summary ---
Author Organization [facility] [address] Care Team Providers Care Salon Shampoo Assistant Name Role Phone Lazaro Fuentes MD Primary Care Provider [phone] Reason for Referral * Imaging (Routine) - Closed Specialty Diagnoses / Procedures Referred By Mychal cardenas Referred To Contact Radiology Diagnoses Unintended weight loss Procedures CT Abdomen Pelvis w Contrast Lazaro Fuentes MD [address] [place] [address] Phone: tel: fax: CT Scan [address] Phone: tel: fax: Referral ID Status Reason Start Date Expiration Date Visits Re quested Visits Authorized [id number] Closed 05/18/2024 05/18/2025 1 1 Reason for Visit * Imaging (Routine) - Closed Specialty Diagnoses / Procedures Referred By Mychal cardenas Referred To Contact Radiology Diagnoses Unintended weight loss Procedures CT Abdomen Pelvis w Contrast Lazaro Fuentes MD [address] [place] [address] Phone: tel: fax: CT Scan - [place] [address] [place] [address] Phone: tel: fax: Referral ID Status Reason Start Date Expiration Date Visits Re quested Visits Authorized [id number] Closed 05/18/2024 05/18/2025 1 1 Encounter Details Date Type Department Care Team (Latest Contact Info) Description 05/20/2024 9:30 AM EST - 05/20/2024 11:59 PM EST Hospital Encounter CT Scan - [place] [address] [place] [address] Unintended weight loss Discharge Disposition: Home or [...] 06/14/2024 1:00 PM EDT Office Visit [facility] [address] [phone] Oscar Eckert MD 175 [facility] [address] [place] [phone] 06/14/2024 3:30 PM EDT Appointment Radiology Department [address] [address] 06/15/2024 10:30 AM EDT Office Visit Internal Medicine - [address] [phone] Lazaro Fuentes MD [address] [place] [address] 06/17/2024 7:00 AM EDT Evaluation [facility] [address] [place] [phone] Mary Suarez, JAYSHREE 06/24/2024 8:00 AM EDT Office Visit Gastroenterology - [address] [place] [address] Farhana Potter PA [address] [place] [address] 07/04/2024 10:00 AM EDT Office Visit Urogynecology - [place] [address] [place] [address] Daxa Khan MD 580 [facility] [address] [place] [address] documented as of this encounter Procedures Procedure Name Priority Date/Time Associated Diagnosis Comments CT ABDOMEN PELVIS W CONTRAST Routine 05/20/2024 10:05 AM EST Unintended weight loss documented in this encounter Results * CT Abdomen Pelvis w Contrast (05/20/2024 [...] Signed Date: 05/20/2024 16:12 ET Workstation ID: [id number] Transcribed By: Self Edit Transcribed Date: 05/20/2024 [...] Signed Date: 05/20/2024 16:12 ET Workstation ID: [id number] Transcribed By: Self Edit Transcribed Date: 05/20/2024 15:58 ET Lazaro Fuentes MD IM CT PROCEDURES Final R esult documented in this encounter Visit Diagnoses Diagnosis Unintended weight loss documented in this encounter Administered Medications Inactive Administered Medications - up to 3 most recent administrations Medication Order MAR Action Action Date Dose Rate Site iopamidoL (ISOVUE-370) 370 mg iodine /mL (76 %) injection 100 mL 100 mL, intravenous, Once in imaging, Starting on Thu05/20/24 at 1004, For 1 dose Given 05/20/2024 10:04 AM EST 100 mL sodium chloride 0.9 % flush 10 mL 10 mL, intravenous, Once, On Thu05/20/24 at 1030, For 1 dose Given 05/20/2024 10:04 AM EST 10 mL documented in this encounter Care Teams Salon Shampoo Assistant Relationship Specialty Start Date End Date Lazaro Fuentes MD [address] [place] [address] PCP - General Internal Medicine 03/18/16 documented as of this encounter
--- OUTSIDE RECORDS SUMMARY | 2024-06-10 09:51 | XMS_ITS | Encounter Summary ---
Author Organization [facility] [place] [address] Care Team Providers Care Business Team Leader Name Role Phone Lazaro Fuentes MD Primary Care Provider [phone] Reason for Referral * Imaging (Routine) - Pending Review Specialty Diagnoses / Procedures Referred By Mychal cardenas Referred To Contact Radiology Diagnoses Cyst of right ovary Procedures US Pelvis Non OB Complete w Transvaginal Cass Mann DO [address] [place], [place] Phone: tel: fax: [facility] [address] [facility] [address] [place] Phone: tel: Referral ID Status Reason Start Date Expiration Date V isits Requested Visits Authorized [id number] Pending Review 06/07/2024 06/07/2025 1 1 Reason for Visit * Reason Comments Consult Encounter Details Date Type Department Care Team (Late Contact Info) Description 06/07/2024 8:45 AM EST Office Visit Obstetrics and Gynecology - [place] [facility] [place] [phone] Cass Mann DO [address] [place] [address] Cyst of right ovary (Primary Dx) Social History Tobacco Use Types [...] Pulse 79 06/07/2024 8:48 AM EST Temperature - - Respiratory Rate 18 06/07/2024 8:48 AM EST Oxygen Saturation - - Inhaled Oxygen Concentration - - Weight 74 kg (163 lb 3.2 oz) 06/07/2024 8:48 AM EST Height 157.5 cm (5' 2 ) 06/07/2024 8:48 AM EST Body Mass Index 29.85 06/07/2024 8:48 AM EST documented in this encounter Progress Notes * Cass Mann, DO - 06/07/2024 8:45 AM EST Images from the original note were not included. CHIEF COMPLAINT: Consult IDENTIFIER:Afia Garcia is a 53 y.o. female HPI: Pt presents today to review recent CT results. CT Abd/Pelvis was done to evaluate for causes of unintentional weight loss. Afia reports she has not had a period since August 2023. She reports some discomfort in her pelvis that started last week. She has a known h/o fibroids. She does report that her mood has not been good, she is getting no carlos out of life and is struggling with sleep. She wonders if HRT could help with this. ROS: GENERAL: Pt reports doing well : negative for dysuria CREDIT RISK ASSOCIATE: See HPI PAST MEDICAL HISTORY: OB History Para Term AB Living 1 1 1 SAB IAB Ectopic Multiple Live Births # Outcome Date GA Lbr Dusty/2nd Weight Sex Type Anes PTL Lv 1 Term Patient Active Problem List Diagnosis Mixed hyperlipidemia Irritable bowel syndrome with constipation Hiatal hernia Steatosis of liver Compound nevus Dermatofibroma of trunk Restless leg syndrome Chronic nonintractable headache Cocaine abuse in remission (CMS/HCC) Anxiety Insomnia History of COVID-19 Former smoker History of seizure History of uterine fibroid Prediabetes SOCIAL HISTORY: Social History Tobacco Use Smoking status: Former Current packs/day: 0.00 Average packs/day: 1 pack/day for 40.6 years (40.6 ttl pk-yrs) Types: Cigarettes Start date: 04/06/1982 Quit date: 10/31/2022 Years since quittin.6 Smokeless tobacco: Never Vaping Use Vaping status: Every Day Substance Use Topics Alcohol use: No Drug use: Yes Types: Marijuana/Cannabis FAMILY HISTORY: Family History Problem Relation Name Age of Onset Kidney cancer Mother Other (Other: ca thyroid) Sister Coronary artery disease Brother triple bypass Coronary artery disease Mother's side uncle [address] Colon cancer Neg Hx Ovarian cancer Neg Hx Breast cancer Neg Hx I have reviewed the following sections of the chart: active problem list, medication list, social history, imaging MEDICATIONS: Your medication list Accurate as of June 07, 2024 9:13 AM. If you have any questions, ask your nurse or doctor. CONTINUE taking these medications Instructions Last Dose Given Next Dose Due atorvastatin 40 mg tablet Commonly known as: LIPITOR Take 1 tablet (40 mg total) by mouth 1 (one) time each day. busPIRone 15 mg tablet Commonly known as: BUSPAR Take 1.5 tablets (22.5 mg total) by mouth 2 (two) times a day. cetirizine 10 mg tablet Commonly known as: ZyrTEC Take 1 tablet (10 mg total) by mouth 1 (one) time each day. famotidine 20 mg tablet Commonly known as: PEPCID Take 1 tablet (20 mg total) by mouth 2 (two) times a day. fluticasone propionate 50 mcg/actuation nasal spray Commonly known as: FLONASE Administer 1 spray into affected nostril(s). folic acid 800 mcg tablet Commonly known as: FOLVITE Take 1 tablet (800 mcg total) by mouth 1 (one) time each day. gabapentin 300 mg capsule Commonly known as: NEURONTIN Take 2 capsules (600 mg total) by mouth 2 (two) times a day. Gas Relief (simethicone) 180 mg capsule Generic drug: simethicone Take 1 capsule (180 mg total) by mouth 2 (two) times a day. lidocaine 5 % patch Commonly known as: LIDODERM Apply 1 patch topically 1 (one) time each day. lurasidone 20 mg tablet Commonly known as: LATUDA Take 1 tablet (20 mg total) by mouth 1 (one) time each day in the evening. melatonin 3 mg capsule Take by mouth. mirtazapine 15 mg tablet Commonly known as: REMERON Take 1 tablet (15 mg total) by mouth at bedtime. pramipexole 1.5 mg tablet Commonly known as: MIRAPEX Take 1.5 tablets (2.25 mg total) by mouth 1 (one) time each day. tryptophan 500 mg capsule Take by mouth. Ventolin HFA 90 mcg/actuation inhaler Generic drug: albuterol HFA INHALE 2 PUFFS INTO THE LUNGS 4 TIMES DAILY NEEDED FOR COUGH OR WHEEZING. Contraception: NA ALLERGIES: Allergies Allergen Reactions Other Seasonal allergies PHYSICAL EXAM: Visit Vitals BP 116/74 Pulse 79 Resp 18 Ht 1.575 m (62 ) Wt 74 kg (163 lb 3.2 oz) BMI 29.85 kg/m?? OB Status Postmenopausal Smoking Status Former BSA 1.75 m?? APPEARANCE:Healthy, alert, active, cooperative, and in no distress PSYCH: affect appropriate IMAGING: : The adrenal glands are within normal limits. The kidneys are unremarkable. Bladder is well distended. Uterus is anteverted. A few coarse calcifications are present within the anterior uterus. Right ovarian cyst measures 3.3 x 2.1 cm. Left ovarian follicle measures 1.7 cm. ASSESSMENT: 1. Cyst of right ovary PLAN: Reviewed CT with Afia. Reassured her that in perimenopause it is not uncommon for there to be cystson her ovaries. The best way for me to evaluate these cysts though is with an US - this will get nicole more accurate size and characterization. This has been ordered. Will review results with Afia once available Until this is worked out, a discussion of HRT is inappropriate. I did point out that HRT is effective in making symptoms of menopause manageable. If her primary concern is her mood though, recommend she address with her therapist/Psychiatrist. She agrees. Orders Placed This Encounter Procedures US Pelvis Non OB Complete w Transvaginal Cass Mann, documented in this encounter Plan of Treatment Upcoming Encounters Date Type Department Care Team (Late st Contact Info) Description 06/14/2024 1:00 PM EDT Office Visit [facility] [place] [facility] [place] 175 [facility] 150 [place] [phone] Oscar Eckert MD 175 [facility] 150 [place] [phone] 06/14/2024 3:30 PM EDT Appointment Radiology Department - [address] [phone] 06/15/2024 10:30 AM EDT Office Visit Internal Medicine - [address] [phone] Lazaro Fuentes MD [address] [place] [address] 06/17/2024 7:00 AM EDT Evaluation [facility] [place] 175 [facility] [address] [place] [phone] Mary Suarez, JAYSHREE 06/24/2024 8:00 AM EDT Office Visit Gastroenterology - 299 [facility] 299 [facility] [address] [place] [phone] Farhana Potter PA 299 [facility] [address] [place] [address] 07/04/2024 10:00 AM EDT Office Visit Urogynecology - [address] [phone] Daxa Khan MD [address] [place] [address] [address] [place] [address] Scheduled Orders Name Type Priority Associated Diagnoses Orde r Schedule US Pelvis Non OB Complete w Transvaginal Imaging Routine Cyst of right ovary Expected: 06/07/2024, Expires: 06/07/2025 documented as of this encounter Visit Diagnoses Diagnosis Cyst of right ovary- Primary Other and unspecified ovarian cyst documented in this encounter Additional Health Concerns Infection Onset Date Last Indicated Resolved Time COVID-19 05/23/2024 05/23/2024 documented as of this encounter Care Teams Business Team Leader Relationship Specialty Start Date End Date Lazaro Fuentes MD [address] [place] [address] PCP - General Internal Medicine 03/18/16 documented as of this encounter
--- OUTSIDE RECORDS SUMMARY | 2024-06-10 09:51 | XMS_ITS | Encounter Summary ---
Author Organization [facility] [place] [address] Care Team Providers Care Tow Truck Operator Name Role Phone Lazaro Fuentes MD Primary Care Provider [phone] Reason for Referral * Consultation (Routine) - Authorized Specialty Diagnoses / Procedures Referred By Mychal cardenas Referred To Contact Rheumatology Diagnoses Arthralgia, unspecified joint Lazaro Fuentes MD [address] [place] [address] Phone: tel: fax: [facility] Referral ID Status Reason Start Date Expiration Date Visits Requested Visits Authorized [id number] Authorized Specialty Services Required 05/17/2024 05/17/2025 1 1 Scheduling Instructions Ask the patient WHO referred them to this specialty: Patient self referred FIRST and LAST NAME of SPECIALIST PATIENT is seeing: Dr. Goss What specialty is this? N/a DIAGNOSIS Patient is being seen for (Not a body part or a procedure): arthragia Have you seen this SPECIALIST for this PROBLEM/DX before? If YES, when? Yes. 04-20-24 Have you checked REVIEW or the APPT DESK to see if this referral has already been done or has visits left? yes Is this visit: Initial Visit Address of Specialist: [address] [place] [address] Phone # of Specialist: n.a Fax #: (if applicable): [phone] Does patient have an appointment scheduled?: yes Date of appointment- (including a retro-request): visits including 04-20-24 Reason for Visit * Reason Onset Date Comments Referral 05/17/2024 Encounter Details Date Type Department Care Team (Late st Contact Info) Description 05/17/2024 Telephone Internal Medicine - [address] [phone] Lazaro Fuentes MD [address] [place] [address] Referral Social History Tobacco Use Types Packs/Day Years [...] as of this encounter Progress Notes * Ivania Solis MA - 05/18/2024 10:52 AM EST Pt informed * Lazaro Fuentes MD - 05/17/2024 7:13 PM EST Referral to rheumatology signed. * Priscilla Lilly MA - 05/17/2024 2:31 PM EST Last seen 03/31/24, next appt 05/24/24. Referral pended. * Jose G Kebede - 05/17/2024 2:15 PM EST Referral Request: What insurance does the patient have today? [employer] Referrals cannot be processed if the insurance is not accurate. If the insurance listed above in red is NO BILLING INFORMATION FOUND FOR THIS ENCOUTNER The patients correct insurance must be obtained and registered in [facility] or their referral can not be processed. Is this a retro request? yes If yes for what date of service do you need the retro referral? 04-20-24 Who is calling to request this referral? N/a faxed to office If the caller is not the patient, what is their name? not applicable Ask the patient WHO referred them to this specialty: Patient self referred FIRST and LAST NAME of SPECIALIST PATIENT is seeing: Dr. Goss What specialty is this? N/a DIAGNOSIS Patient is being seen for (Not a body part or a procedure): arthramonia Have you seen this SPECIALIST for this PROBLEM/DX before? If YES, when? Yes. 04-20-24 Have you checked REVIEW or the APPT DESK to see if this referral has already been done or has visits left? yes Is this visit: Initial Visit Address of Specialist: [address] [place] [address] Phone # of Specialist: n.a Fax #: (if applicable): [phone] Does patient have an appointment scheduled?: yes Date of appointment- (including a retro-request): 12 visits including 04-20-24 Is this appointment related to: documented in this encounter Plan of Treatment Upcoming Encounters Date Type Department Care Team (Late st Contact Info) Description 06/14/2024 1:00 PM EDT Office Visit [facility] [place] [facility] [place] [address] [facility] [address] [place] [address] Oscar Eckert MD [address] [facility] [address] [place] [address] 06/14/2024 3:30 PM EDT Appointment Radiology Department - [address], [place] [phone] 06/15/2024 10:30 AM EDT Office Visit Internal Medicine - [facility] [address] [place] [address] Lazaro Fuentes MD [address] [place] [address] 06/17/2024 7:00 AM EDT Evaluation [facility] [place] [address] [facility] [address] [place] [phone] Mary Suarez PT 06/24/2024 8:00 AM EDT Office Visit Gastroenterology - 299 [facility] 299 [facility] [address] [place] [address] Farhana Potter PA 299 [facility] [address] [place] [address] 07/04/2024 10:00 AM EDT Office Visit Urogynecology - [address] [phone] Daxa Khan MD [address] [place] [address] [address] [place] [address] Scheduled Referrals Name Type Priority Associated Diagnoses Order Schedule Ambulatory referral to Rheumatology Outpatient Referral Routine Arthralgia, unspecified joint 1 Occurrences starting 05/17/2024 until 05/17/2025 documented as of this encounter Visit Diagnoses Diagnosis Arthralgia, unspecified joint- Primary documented in this encounter Care Teams Tow Truck Operator Relationship Specialty Start Date End Date Lazaro Fuentes MD [address] [place] [address] PCP - General Internal Medicine 03/18/16 documented as of this encounter
[2024-06-10 11:14] LABS: C Reactive Protein < 0.10 mg/dL (< or = 0.50)
[2024-06-10 11:27] LABS: Syphilis Screen Nonreactive (Nonreactive)
[2024-06-13 09:47] LABS: Anti Nuclear Antibody Screen NEGATIVE (NEGATIVE)
[2024-06-13 21:04] LABS: Lyme Abs Screen <0.90 index
[2024-06-13 22:18] LABS: IgA 132 mg/dL (47-310); IgG 945 mg/dL (600-1640); IgM 178 mg/dL (50-300)
== END 2024-06-10 09:05 | disposition home or self-care (01) ==
LOC: HO.LAB 09:04
PROVIDERS: PCP Internal Medicine; Visit Provider Registered Nurse
DX: R90.82 White matter disease, unspecified (principal)
CPT/HCPCS: 36415; 82784; 85652; 86038; 86140; 86334; 86617; 86618; 86780

== ENCOUNTER 2024-06-11 09:04 | Outpatient (REF) | payer OTHER, SELFPAY ==
[2024-06-11 11:09] LABS: Erythrocyte Sedimentation Rate 20 MM/HR (0-20)
== END 2024-06-11 09:05 | disposition home or self-care (01) ==
LOC: HO.LAB 09:04
PROVIDERS: PCP Internal Medicine; Visit Provider Registered Nurse
DX: R90.82 White matter disease, unspecified (principal)
CPT/HCPCS: 36415; 85652

== ENCOUNTER 2024-11-14 15:31 | Outpatient (AMB) | payer OTHER, SELFPAY ==
--- OUTSIDE RECORDS SUMMARY | 2024-11-14 15:39 | XMS_ITS | Clinical Summary ---
Author Organization [facility] Address [address] [place] [address] Care Team Providers Care Slot Floor Supervisor Name Role Phone Unavailable Primary Care Provider [...]
--- OUTSIDE RECORDS SUMMARY | 2024-11-14 15:40 | XMS_ITS | Clinical Summary ---
Author Organization Patient Business Ser [facility] [place] Address [address] [place] [address] Care Team Providers Care Salvage Engineer Name Role Phone Lazaro Fuentes MD Primary Care Provider [phone] Allergies Active Allergy Reactions Criticality Noted Date Comments Baclofen (Bulk) Anxiety 07/18/2024 Other 11/27/2016 Seasonal allergies Pregabalin 10/13/2024 Other Reaction(s): Anaphylactoid reaction Medications cetirizine (ZyrTEC) 10 mg tablet Take 1 tablet (10 mg total) by mouth 1 (one) time each day. 10/22/19 24 Active folic acid (FOLVITE) 800 mcg tablet Take 1 tablet (800 mcg total) by mouth 1 (one) time each day. Active gabapentin (NEURONTIN) 300 mg capsule Take 2 capsules (600 mg total) by mouth 3 (three) times a day. 10/05/19 24 Active simethicone (Gas Relief, simethicone,) 180 mg capsule Take 1 capsule (180 mg total) by mouth 2 (two) times a day. Active lidocaine (LIDODERM) 5 % patch Apply 1 patch topically 1 (one) time each day. 28 patch 1 03/31/20 24 Active nabumetone (RELAFEN) 500 mg tablet Take 1 tablet (500 mg total) by mouth 2 (two) times a day. 08/16/19 25 025 Active LORazepam (ATIVAN) 0.5 mg tablet Take 1 tablet (0.5 mg total) by mouth at bedtime as needed for anxiety. 08/16/19 25 Active OXcarbazepine (TRILEPTAL) 600 mg tablet Take 0.5 tablets (300 mg total) by mouth 2 (two) times a day. 300 in the morning and 600 at night 08/31/19 25 Active estradioL (ESTRACE) 0.01 % (0.1 mg/gram) vaginal creamIndicatio ns:atrophic vaginitis associated with menopause Apply a pea-sized amount of cream with your fingertip to the vaginal canal every night for 2 weeks, then twice a week thereafter. 42.5 g 5 09/07/19 25 Active atorvastatin (LIPITOR) 40 mg tablet TAKE 1 TABLET BY MOUTH 1 TIME EACH DAY. 90 tablet 09/20/19 25 Active amitriptyline (ELAVIL) 25 mg tablet 1 TABLET AT BEDTIME X1 WEEK THEN 2 TABLETS AT BEDTIME ORALLY DIRECTED 30 DAYS 09/14/19 25 Active busPIRone (BUSPAR) 30 mg tablet Take 1 tablet (30 mg total) by mouth 3 (three) times a day. 270 tablet 3 09/23/19 25 Active sertraline (ZOLOFT) 25 mg tablet Take 1 tablet (25 mg total) by mouth 1 (one) time each day. 90 each 1 09/23/19 25 025 Active cloNIDine (CATAPRES) 0.2 mg tablet Take 1 tablet (0.2 mg total) by mouth 2 (two) times a day. 180 tablet 1 09/23/19 25 Active famotidine (PEPCID) 20 mg tablet TAKE 1 TABLET BY MOUTH TWICE A DAY 180 tablet 1 10/11/19 25 Active fluticasone propionate (FLONASE) 50 mcg/actuation nasal spray ADMINISTER 1 SPRAY INTO EACH NOSTRIL 2 TIMES A DAY. 48 mL 1 10/11/19 25 Active Ventolin HFA 90 mcg/actuation inhalerIndicat ions:Former smoker INHALE 2 PUFFS BY MOUTH EVERY 6 HOURS NEEDED FOR WHEEZE 18 each 1 10/19/19 25 Active simethicone (Gas Relief, simethicone,) 250 mg capsuleIndicat ions:Bloated abdomen,Flatul ence Take 1 capsule by mouth 3 (three) times a day. 270 capsule 3 10/21/19 25 026 Active albuterol HFA (Ventolin HFA) 90 mcg/actuation inhalerIndicat ions:Former smoker Inhale 2 puffs by mouth every 6 (six) hours if needed for wheezing. 6.7 g 09/14/19 25 025 Discontinued Active Problems Problem Noted Date Diagnosed Date Class 1 obesity 10/17/2024 Fibromyalgia 09/22/2024 Peripheral neuropathy 07/11/2024 Osteoarthritis 06/10/2024 Prediabetes 04/01/2024 Former smoker 12/23/2023 History of seizure 12/23/2023 Overview (12/23/2023): Teens,self limited recurrence in 30's History of uterine fibroid 12/23/2023 Plantar fasciitis 09/06/2023 Hiatal hernia 07/06/2023 Overview (12/23/2023): Small, CT 06/2023 Steatosis of liver 07/06/2023 Overview (12/23/2023): US & CT 2023 Irritable bowel syndrome with constipation 03/09 Chronic nonintractable headache 03/09/2020 Restless leg syndrome 11/27/2016 Mixed hyperlipidemia 04/01/2016 Cocaine abuse in remission (CMS/HCC V24, CMS/[facility] V28) 12/06/2013 Anxiety 09/28/2012 Insomnia 09/28/2012 Overview (12/23/2023): 01/2018 Diagnostic PSG did not reveal sleep apnea. 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 Dermatofibroma of trunk 02/23/2012 Resolved Problems Problem Noted Date Diagnosed Date Resolved Date History of COVID-19 05/14/2022 09/23/19 25 Encounters Date Type Department Care Team Description 11/02/2024 Telephone Internal Medicine - [facility] [address] [place] [phone] Lazaro Fuentes MD Forms/questionnaires (FMLA) 10/20/2024 3:30 PM EDT Office Visit Gastroenterology - [address] [place] [address] Farhana Potter PA Bloated abdomen (Primary Dx); Flatulence; Irritable bowel syndrome with both constipation and diarrhea; Unintentional weight loss 10/18/2024 Telephone Internal Medicine - [address] [phone] Lazaro Fuentes MD Letter for School/Work 10/13/2024 2:00 PM EDT Consult Orthopedics - [address] [phone] Roderick Chavez PA Left elbow tendinitis (Primary Dx); Elbow pain, chronic, left 10/13/2024 1:46 PM EDT - 10/13/2024 11:59 PM EDT Hospital Encounter XRAY - [address] [phone] Left elbow pain Discharge Disposition: Home or Self Care 10/10/2024 Telephone Internal Medicine - [address] [phone] Lazaro Fuentes MD Referral 09/27/2024 Telephone Internal Medicine [address] [phone] Lazaro Fuentes MD Referral (Orthopedic Referral) 09/26/2024 Telephone Internal [address] [phone] Lazaro Fuentes MD Referral 09/22/2024 2:45 PM EDT Office Visit Internal Medicine - [address] [phone] Apurva Huang, IMAN Fibromyalgia (Primary Dx); Anxiety; Restless leg syndrome; Elevated blood pressure reading 09/22/2024 [facility] [phone] Lazaro Fuentes MD Forms/questionnaires (PFML) 09/13/2024 Telephone Internal Medicine - [address] [phone] Lazaro Fuentes MD 09/12/2024 Telephone Internal Medicine - [address] [phone] Lazaro Fuentes MD Medication Problem (/) 09/06/2024 1:00 PM EDT Consult Urogynecology [address] [phone] Spring Weston MD OAB (overactive bladder) (Primary Dx); Stress incontinence; Genitourinary syndrome of menopause 08/30/2024 3:34 PM EDT - 08/30/2024 11:59 PM EDT Hospital Encounter Xray - [address] [phone] Chronic pain of both feet Discharge Disposition: Home or Self Care 08/30/2024 3:15 PM EDT Office Visit Internal Medicine - [address] [phone] Phillip Perez PA Chronic pain of both feet (Primary Dx) 08/30/2024 Telephone Internal Medicine - [address] [phone] Lazaro Fuentes MD Foot Pain 08/23/2024 3:30 PM EDT Office Visit [facility] [address] [facility] [address] [place] [phone] Oscar Eckert MD Family history of multiple sclerosis (Primary Dx); Muscle weakness; White matter lesion of central nervous system 08/16/2024 Telephone Internal Medicine - [address] [phone] Lazaro Fuentes MD Arthritis from Last 3 Months Immunizations Name Administration Dates Next Due Influenza Quadrivalent, 0.5m l, preservative free (Fluarix; FluLaval; Fluzone) ages 6mo and older (Afluria) 3yo and older 01/28/2021 Influenza trivalent, MDCK, 0 .5mL, preservative free (Flucelvax) 6mo and older 12/18/2023 Influenza trivalent, with pr eservative (Fluzone; Afluria) [...] abuse DX:Tobacco abuse Cocaine abuse in remission ( [facility]/HCC V24, [facility]/HCC V28) DX:Cocaine abuse in remissio n ([facility]) 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 DX:Compound nevu s Dermatofibroma of trunk 02/23/2012 DX:[place] tofibroma of trunk Restless leg syndrome 11/27/2016 [...] disease Mother's side [place] 55 [place] Other: ca thyroid Sister Breast cancer Neg [...] Sign Reading Time Taken Comments Blood Pressure 137/94 09/22/2024 2:50 PM EDT aut o cuff Pulse 106 09/22/2024 2:50 PM EDT auto cuff Temperature 37.1 C (98.7 F) 09/22/2024 2:50 PM EDT Respiratory Rate 14 10/13/2024 1:57 PM EDT Oxygen Saturation 99% 08/23/2024 3:39 PM EDT Inhaled Oxygen Concentration - - Weight 78.5 kg (173 lb) 10/20/2024 3:34 PM EDT Height 157.5 cm (5' 2 ) 10/20/2024 3:34 PM EDT Body Mass Index 31.64 10/20/2024 3:34 PM EDT Plan of Treatment Upcoming Encounters Date Type Department Care Team (Late st Contact Info) Description 11/15/2024 8:00 AM EDT Consult Orthopedic Surgery [facility] [address] [phone] Soren Deutsch, DPM [address] [phone] 12/02/2024 1:15 PM EDT Office Visit Internal Medicine - [address] [phone] Apurva Huang, IMAN [address] [place] [address] 01/02/2025 1:00 PM EDT Office Visit [facility] [address] [facility] [address] [place] [address] Oscar Eckert MD [address] [facility] [address] [place] [address] 04/24/2025 8:20 AM EST Office Visit Gastroenterology - [address] [facility] [address] [place] [phone] Farhana Potter PA [address] [facility] [address] [facility] [address] [place] [address] Health Maintenance Due Date Last Done Comments Hepatitis A Vaccines (1 of 2 - Risk 2-dose series) 06/11/1990 Hepatitis B Vaccines (1 of 3 - 19+ 3-dose series) 06/11/1990 Pneumococcal Vaccine: 50+ Years (1 of 2 - PCV) 06/11/1990 Lung Cancer Screening (Low Dose CT) 12/20/2019 Depression Screening 04/06/2024 06/09/2023 COVID-19 Vaccine (5 - Moderna risk 2023- season) 2024 12/18/2023, 02/08/2021, 05/15/2020, Additional history exists Social Influencers of Health Screening 08/23/2024 08/24/2023 Influenza Vaccine (#1) 2024 4, 12/18/2023, 02/04/2022, Additional history exists Breast Cancer Screening 06/21/2025 06/22/19 24, 06/20/2022, 05/21/2021, Additional history exists Cervical Cancer Screening: Pap Smear 06/30/2025 06/30/2022 Cholesterol Screening (Lipid Panel) 10/14/2028 10/15/2023, 10/15/2023 Colorectal Cancer Screening: Colonoscopy 06/26/2032 06/26/2022, 06/26/2022 DTaP,Tdap,and Td Vaccines (4 - Td or Tdap) 01/19/2034 01/20/2024, 12/06/2013, 04/06/2007 Zoster Vaccines Completed 03/19/2022, 10/23/2021 Hepatitis C Screening Completed 10/01/2022 HIV Screening Completed 05/18/2024 HIB Vaccines Aged [...] age to complete this topic Meningococcal B Vaccine Aged Out No l onger eligible based on patient's age to complete this topic RSV Immunization Patients Under 20 months Aged Out No longer eligible based on patient's age to complete this topic Varicella Vaccines Aged Out No longer eligible based on patient's age to complete this topic Procedures Procedure Name Priority Date/Time Associated Diagnosis Comments ENDOMYSIAL ANTIBODY, IGA Routine 10/20/2024 4:05 PM EDT Unintentional weight loss Flatulence Bloated abdomen IMMUNOGLOBULIN IGA Routine 10/20/2024 4: 05 PM EDT Unintentional weight loss Flatulence Bloated abdomen TISSUE TRANSGLUTAMINASE, IGA Routine 10/20/2024 4:05 PM EDT Unintentional weight loss Flatulence Bloated abdomen XR ELBOW 3+ VIEWS LEFT Routine 5 2:08 PM EDT Left elbow pain POC URINE AUTO W/O MICRO Routine 09/06/2024 3:29 PM EDT OAB (overactive bladder) XR FOOT 3+ VIEWS BILAT Routine 5 3:44 PM EDT Chronic pain of both feet HIV 1, 2 ANTIBODY, P24 ANTIGEN WITH REFLEX TO DIFFERENTIATION Routine 05/18/2024 11:44 AM EST Unintended weight loss LIPID PANEL Routine 10/15/2023 NUNU SCREENING DIGITAL Routine 06/22/2023 2:58 PM EDT Encounter for screening mammogram for malignant neoplasm of breast HM DEPRESSION SCREENING Routine 06/09/2023 HEPATITIS C SCREENING Routine 10/01/2022 PAP SMEAR Routine 06/30/2022 COLONOSCOPY Routine 06/26/2022 from Last 3 Months or Most Recently Relevant to Health Maintenance Results * Endomysial antibody, IgA (10/20/2024 4:05 PM EDT) Endomysial IgA Negative Negative 10/24/2024 11:55 AM EDT [facility] Blood Venous blood specimen / Unknown Venipuncture / Unknown 10/20/2024 4:05 PM EDT 10/20/2024 4:19 PM EDT Farhana KULKARNI LAB BLOOD ORDERABLES Final R esult [facility] [address] [place] [address], [place] [phone] * Tissue transglutaminase, IgA (10/20/2024 4:05 PM EDT) [facility] Tissue Transglutaminase Ab, IgA Quant 1 <4 unit/mL LAB CHEMISTRY METHOD 10/26/2024 12:38 PM EDT [facility] Tissue Transglutaminase Ab, IgA Negative Negative LAB CHEMISTRY METHOD 10/26/2024 12:38 PM EDT [facility] Blood Venous blood specimen / Unknown Venipuncture / Unknown 10/20/2024 4:05 PM EDT 10/20/2024 4:19 PM EDT Farhana KULKARNI LAB BLOOD ORDERABLES Final R esult [facility] [address] [place] [address], [place] [phone] * Immunoglobulin IgA (10/20/2024 4:05 PM EDT) IgA 119 61 - 348 mg/dL LAB CHEMISTRY METHOD 10/20/2024 5:10 PM EDT [facility] Blood Venous blood specimen / Unknown Venipuncture / Unknown 10/20/2024 4:05 PM EDT 10/20/2024 4:19 PM EDT us Farhana KULKARNI LAB BLOOD ORDERABLES Final R esult [facility] [address] [place] [address], * XR Elbow 3+ Views Left (10/13/2024 2:08 PM EDT) Anatomical Region Laterality Modality Upper Extremities, Elbow Left Radiogr aphic Imaging 10/13/2024 6:05 PM EDT Impressions 10/13/2024 6:05 PM EDT No fracture or dislocation of the left elbow. -------- FINAL REPORT -------- Dictated By: Theodore Dawson Dictated Date: 10/13/2024 18:05 ET Assigned Physician: Theodore Dawson Reviewed and Electronically Signed By: Theodore Dawson Signed Date: 10/13/2024 18:05 ET Workstation ID: [id number] Transcribed By: Self Edit Transcribed Date: 10/13/2024 18:05 ET Narrative 10/13/2024 6:05 PM EDT HISTORY: Elbow pain, chronic, no prior imaging TECHNIQUE: 3 viewsof the left elbow COMPARISON: None FINDINGS: The elbow joint is well maintained. No fracture or dislocation is seen. There is no joint effusion present. Procedure Note Theodore Dawson MD - 10/13/2024 HISTORY: Elbow pain, chronic, no prior imaging TECHNIQUE: 3 viewsof the left elbow COMPARISON: None FINDINGS: The elbow joint is well maintained. No fracture or dislocation is seen.There is no joint effusion present. IMPRESSION: No fracture or dislocation of the left elbow. -------- FINAL REPORT -------- Dictated By: Theodore Dawson Dictated Date: 10/13/2024 18:05 ET Assigned Physician: Theodore Dawson Reviewed and Electronically Signed By: Theodore Dawson Signed Date: 10/13/2024 18:05 ET Workstation ID: [id number] Transcribed By: Self Edit Transcribed Date: 10/13/2024 18:05 ET Roderick KULKARNI IMG XR PROCEDURES Final Result * POC Urine Auto W/O Micro (09/06/2024 3:29 PM EDT) Glucose UA POC Negative Negative, Trace mg/dL Bilirubin UA POC Negative Negative, Small Ketones UA POC Negative Negative, Trace Specific [place] UA POC 1.020 Blood UA POC Negative Negative, Large PH UA POC 7.0 Protein UA POC Negative Negative, >=300 mg/dL Urobilinogen UA POC 0.2 E.U./dL mg/dL Nitrite UA POC Negative Negative Leukocytes UA POC Negative Negative Urine Urine specimen obtained by clean catch procedure / Unknown 09/06/2024 3:29 PM EDT Spring Weston MD POINT OF CARE TEST ENTER/EDIT O RDERABLES Final Result * XR Foot 3+ Views bilat (08/30/2024 3:44 PM EDT) Anatomical Region Laterality Modality Lower Extremities, Foot Bilateral Radiogra phic Imaging 08/31/2024 8:00 AM EDT Impressions 08/31/2024 8:04 AM EDT Mild degenerative changes at the 1st MTP joints. Bilateral calcaneal spurring. POS - [id number] -------- FINAL REPORT -------- Dictated By: Nat Martinez Dictated Date: 08/31/2024 08:00 ET Assigned Physician: Nat Martinez Reviewed and Electronically Signed By: Nat Martinez Signed Date: 08/31/2024 08:04 ET Workstation ID: [id number] Transcribed By: Self Edit Transcribed Date: 08/31/2024 08:00 ET Narrative 08/31/2024 8:04 AM EDT EXAM: Bilateral foot x-ray HISTORY: Chronic bilateral foot pain. COMPARISON: Right foot radiography 12/22/2023 FINDINGS: 3 views of both feet were performed. No evidence of an acute fracture or malalignment. Mild degenerative changes at the 1st MTP joints with joint space narrowing and spurring. No destructive bone lesion. Small bilateral plantar calcaneal spurs and tiny bilateral posterior calcaneal spurs. Procedure Note Nat Martinez MD - 08/31/2024 EXAM: Bilateral foot x-ray HISTORY: Chronic bilateral foot pain. COMPARISON: Right foot radiography 12/22/2023 FINDINGS: 3 views of both feet were performed. No evidence of an acute fracture or malalignment. Mild degenerativechanges at the 1st MTP joints with joint space narrowing and spurring. Nodestructive bone lesion. Small bilateral plantar calcaneal spurs and tinybilateral posterior calcaneal spurs. IMPRESSION: Mild degenerative changes at the 1st MTP joints. Bilateral calcanealspurring. POS - [id number] -------- FINAL REPORT -------- Dictated By: Nat Martinez Dictated Date: 08/31/2024 08:00 ET Assigned Physician: Nat Martinez Reviewed and Electronically Signed By: Nat Martinez Signed Date: 08/31/2024 08:04 ET Workstation ID: [id number] Transcribed By: Self Edit Transcribed Date: 08/31/2024 08:00 ET Phillip KULKARNI IMG XR PROCEDURES Final Result * HIV 1,2 antibody, p24 antigen with reflex to differentiation (05/18/2024 11:44 AM EST) HIV Combo AB/AG Negative Negative LAB CHEMISTRY METHOD 05/18/2024 3:24 PM EST [facility] Blood Venous blood specimen / Unknown Venipuncture / Unknown 05/18/2024 11:44 AM EST 05/18/2024 11:44 AM EST Narrative [facility] - 05/18/2024 3:24 PM EST This assay is a 4th generation assay allowing for earlier detection of HIV infection by detecting the presence of the HIV-1 p24 antigen as well as the traditional antibodies to HIV type 1 (including group O) and type 2. Use of a 4th generation assay is the current CDC recommendation for HIV screening. us Lazaro Fuentes MD LAB BLOOD ORDERABLES Zeina l Result [facility] [address] [place] [address], * (ABNORMAL) Lipid panel (10/15/2023) LDL/HDL Ratio 3 0 - 4 Triglycerides 216(A) 0 - 150 mg/dL Cholesterol 187 0 - 200 mg/dL HDL 59 >=40 mg/dL LDL Cholesterol 85 0 - 100 mg/dL Blood Venous blood specimen / Unknown Historical Provider LAB BLOOD ORDERABLES Zeina l Result * NUNU SCREENING DIGITAL (06/22/2023 2:58 PM EDT) Anatomical Region Laterality Modality Mammography 06/22/2023 1:39 PM EDT Narrative 06/22/2023 2:58 PM EDT [facility] Diagnostic Imaging Department [address] [place] [address] Patient: AFIA GARCIA/Age/Sex: 1970 - 53 - F Unit#: [id number] Location/Status: SPDIMAM/REG CLI Mnemonic/Ordering [facility] Ordering Physician: LAZARO FUENTES MD Nunu Screening Digital - 06/22/23 - 1351 Report Status:Signed EXAM: [facility] Screening Digital EXAM DATE AND TIME: 06/22/2023 1:51 PM HISTORY: Annual screening COMPARISON: Multiple exams dating back to 2013 TECHNIQUE: Bilateral digital breast tomosynthesis was performed in the CC and MLO projections. Computer aided detection with orderTopia 3D 3.1 was employed. TISSUE DENSITY: b. There are scattered areas of fibroglandular density. FINDINGS: No suspicious masses, grouped microcalcifications, or areas of architectural distortion are seen. The skin and vascularity are unremarkable. IMPRESSION: Stable mammographic appearance of the breasts. No evidence of malignancy is seen. A negative mammogram in the presence of a clinically suspicious palpable abnormality does not preclude the possibility of malignancy or alter the indications for biopsy. BI-RADS: Category 1: Negative RECOMMENDATION(S): 1: Routine screening mammogram BILATERAL in 1 year. 3341F, 7070F Dictating Physician: CYNTHIA CERVANTES MD Electronically Signed by: CYNTHIA CERVANTES MD Dic Date/Time: 06/22/23 1456 Sign date/Time: 06/22/23 1458 Procedure Note Cynthia Cervantes MD - 11/23/2023 [facility] Diagnostic Imaging Department [address] [place] [id number] Patient: AFIA GARCIA/Age/Sex: 1970 - 53 - F Unit#: [id number] Location/Status: SPDIMAM/REG CLI Mnemonic[facility] Ordering Physician: LAZARO FUENTES MD Nunu Screening Digital - 06/22/23 - 1351 Report Status:Signed EXAM: Nunu Screening Digital EXAM DATE AND TIME: 06/22/2023 1:51 PM HISTORY: Annual screening COMPARISON: Multiple exams dating back to 2013 TECHNIQUE: Bilateral digital breast tomosynthesis was performed in the CCand MLO projections. Computer aided detection with orderTopia 3D 3.1was employed. TISSUE DENSITY: b. There [...] 1 year. 3341F, 7025F Dictating Physician: CYNTHIA CERVANTES MD Electronically Signed by: CYNTHIA CERVANTES MD Dic Date/Time: 06/22/23 1457 Sign date/Time: 06/22/23 1458 us Lazaro Fuentes MD IMG BI PROCEDURES Final R esult * Depression Screening (06/09/2023) Depression Screening Abstracted us Historical Provider HEALTH MAINTENANCE Final Result * Hepatitis C Screening (10/01/2022) Hepatitis C Screening Abstracted us Historical Provider HEALTH MAINTENANCE Final Result * Pap Smear (06/30/2022) Pap smear No Interpretation , Abstracted us Historical Provider HEALTH MAINTENANCE Final Result * Colonoscopy (06/26/2022) Colonoscopy No Interpretation , Abstracted Anatomical Region Laterality Modality Other us Historical Provider HEALTH MAINTENANCE Final Result from Last 3 Months or Most Recently Relevant to Health Maintenance Insurance [facility] [employer] Care Teams Salvage Engineer Relationship Specialty Start Date End Date Lazaro Fuentes MD [address] [place] [id number] PCP - General Internal Medicine 03/18/16
--- OUTSIDE RECORDS SUMMARY | 2024-11-14 15:40 | XMS_ITS ---
Author Name [facility] Organization Unknown Care Team Organization Name Specialty Phone Email Start Date End Da te [facility] Lazaro Fuentes Primary Care 10/09/2022 11/23/2023 [facility] Lazaro Fuentes Primary Care 02/11/2022 11/23/2023
--- NOTE | 2024-11-14 16:02 | A.OFFVIS_ITS ---
Intake Visit Reasons: 2 Months F/U Allergies No Known Allergies Allergy (Verified 11/14/24 16:11) Medication List - Last Reconciled 11/14/24 by Krystin Frias CNP albuterol sulfate 90 mcg/actuation (Ventolin HFA) 2 puffs inhalation Q6H PRN amitriptyline 50 mg (2 x 25 mg) PO BEDTIME 30 days atorvastatin 40 mg PO DAILY buspirone 30 mg PO TID clonidine HCl 0.2 mg PO BID famotidine 20 mg PO BID lorazepam 0.5 mg PO BEDTIME PRN methylphenidate HCl ER 20 mg PO DAILY nabumetone 1,000 mg PO DAILY oxcarbazepine 600 mg PO BID pramipexole 1.5 mg orally 1/2 tab in morning and 1 tab in evening; HPI Comments Details: Continues with pains all over body, more so in feet, elbows, and neck. Pain better some days than others. Tapered off gabapentin by physiatry and has appointment next week. Still getting some burning pains in legs. Sleep was better with amitriptyline and not waking during night with pain. Working with PT/OT. Walking with cane. Has been out of work since 09/2024. Has appointment with podiatry later this week, appointment with PCP later this month, and appointment with rheumatology in early 12/2024. RLS symptoms generally well controlled with pramipexole. Had reaction to pregabalin with slight swelling to face and feet and tongue felt fat. She stopped medication and went back to gabapentin 600mg three times a day. Her oxcarbazepine dose was increased to 600mg twice a day and she was advised to take buspirone three times a day by physiatry. They were also prescribing nabumetone for arthritis pains. She tried meloxicam in the past which did not help. Has pain all over body. The only places that she did not have pain were to R elbow, R side of neck, and face. The rest of her body was burning. She noticed that things felt heavier to her. She thought she was walking slower, but balance was about the same. She was using compression sleeves for her feet, legs, and hands which helped with pain some. She got XR of feet which showed heel spurs. She was working part-time as [employer], about 20 hours/week. She was still working with psychiatrist. Stress was still there. She was knitting some. Tried ankle brace in the past, but felt it put too much pressure on outside of ankle and was causing more pain. Burning pain in heels. Random shooting pains in upper thighs, in calves, in feet. Gabapentin does not seem to be helping. Some pain and twitching in arms. Previously, burning in heels. Pain wraps around side and tops of feet. Had to reduce work load. Balance not so good, worse first thing in the morning. Has pre -diabetes. Has pain all over body, particularly in feet, worse as day goes on. Has trouble driving because of pain in feet. Difficulty standing because of pain. 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 She was diagnosed with fibromyalgia and OA by rheumatology, no follow up scheduled. Told she has lumbar spinal stenosis by orthopedics. Feet hurt from plantar fasciitis, heel spur, and strained tendon. Right shoulder pain radiating into right thumb has resolved. She has h/o kicking her legs all night, tosses and turns. At around 8 pm, she starts feeling sensations of wanting to move legs. RLS symptoms are worse after stopping Mirapex. Gabapentin 300mg at night does not help. 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 Hx of anxiety and past history of crack cocaine addiction, clean for 9+ years. Stopped vaping. Has some trouble sleeping and frequently talks at night and thrashes around. Was on ropinirole 0.5mg for 2 years and 1mg for 1 year with some relief, but not complete control of symptoms. 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 Has been off medications for many years, no seizure recurrence. In 2008 and 2009, she had 2 episodes where she woke up with shaking all over and vomiting, but was conscious. [facility] Medical History (Updated 11/14/24 @ 16:10 by Krystin Frias CNP) Fibromyalgia Peripheral neuropathy White matter disease Neuropathy Extrapyramidal and movement disorder, unspecified Review of Systems Const Denies chills, Denies daytime sleepiness, Reports difficulty sleeping, Reports fatigue, Denies fever(s), Denies frequent falls, Denies headache(s), Denies increased appetite, Denies poor appetite, Denies snoring, Denies weakness, Denies weight gain and Denies weight loss Eyes Denies loss of vision ENT Denies vertigo, Denies dizziness, Denies headache(s) and Denies neck pain Card Denies chest pain at rest, Denies chest pain with activity, Denies syncope, Denies leg edema, Denies palpitations, Denies dyspnea and Denies dyspnea on exertion Resp Denies cough, Denies dyspnea, Denies dyspnea on exertion and Denies snoring GI Denies abdominal pain, Denies constipation, Denies heartburn, Denies diarrhea and Denies nausea Denies urinary frequency, Denies urinary incontinence and Denies urinary urgency Musc Denies abnormal gait, Denies back pain, Denies myalgias, Denies arthralgias, Denies neck pain, Reports numbness and Reports tingling Neuro Denies abnormal gait, Denies vertigo, Denies dizziness, Denies syncope, Denies frequent falls, Denies headache(s), Denies lack of coordination, Denies loss of vision, Reports memory loss, Reports numbness, Denies Other visual disturbances, Reports restless legs, Denies seizure-like activity, Reports tingling, Reports paresthesias, Denies tremor(s) and Denies weakness Psych Reports anxiety, Denies depression, Denies auditory hallucinations, Reports memory loss and Denies visual hallucinations Endo Reports fatigue and Denies palpitations Physical Exam Const Other: General Appearance:? normal, in no acute distress. Heart:? S1, S2 normal, no murmurs. Lungs:? clear anteriorly and posteriorly. Musculoskeletal:? normal. Extremities:? no edema. Psych:? alert, oriented, cognitive function intact, cooperative with exam. Neuro Other: Abnormal Neurological Findings:?Mild fine tremor of extended UE. Position and vibratory sensation intact.? Mental Status: alert and oriented X 3. Normal attention, orientation, memory, and affect. Cranial Nerves: Pupils are equal, round, and reactive to light. External ocular muscles are intact. Visual howell are full, no ptosis. Face is symmetrical, no facial weakness or droop. Facial sensations are normal. Tongue protrudes in midline. Palate elevates symmetrically. Shoulder shrugging is normal Motor Examination: Normal muscle tone, bulk and strength. No atrophy or fasciculations. No drift of the extended upper extremities. DTR 2+. Plantars are flexor. Sensory Exam: Normal light touch, temperature, pinprick, vibration, and joint- position sensations. Rhomberg sign is absent. Coordination: No ataxia. No titubation. [id number], [id number] test, and rapid alternating movements were normal. Gait Exam: Within normal limits. Cerebellar Signs: [id number] is okay. Extrapyramidal System: Tremor is okay. No rigidity with normal facial expressions. No bradykinesia. No bradyphrenia. Normal arm swing and posture. No propulsion or retropulsion. Speech: Normal. Results Reviewed Results Reviewed: 07/20/24 NCV/EMG LE Mild to moderate left motor axonal loss in the lower extremities. Normal EMG in the left L4-S1 innervated muscles. Labs 06/2024: Ok MRI brain at [facility] 05/2024: Nonspecific white matter signal abnormalities MRI C + T spine in Jul 2024: Straight cervical curvature, mod spondolitic cervical disease especially at C 5/6, no myelopathy, thoracic spine is ok. Assessment & Plan Assessment & Plan (1) RLS (restless legs syndrome): Code(s): G25.81 - Restless legs syndrome Category: Medical Plan: Continue pramipexole dihydrochloride 1.5mg 1/2 tablet in the morning and 1 tablet in the evening (2) Fibromyalgia: Code(s): M79.7 - Fibromyalgia Category: Medical Plan: Continue amitriptyline 50mg 1 tablet at bedtime. Following with physiatry. (3) Peripheral neuropathy: Code(s): G62.9 - Polyneuropathy, unspecified Category: Medical Qualifiers: Peripheral neuropathy type: polyneuropathy, unspecified Qualified Code(s): G62.9 - Polyneuropathy, unspecified Plan Meds tried: gabapentin, pregabalin (side effects) Medications: New amitriptyline 50 mg PO BEDTIME 90 tabs 1RF 90 days Discontinued amitriptyline Discontinued Reason: Order 50 mg (2 x 25 mg) PO BEDTIME 30 days 60 tabs 3RF Coding Level of Care Code Est Pt Level 4 (81510) Diagnoses RLS (restless legs syndrome) G25.81 Fibromyalgia M79.7 Peripheral polyneuropathy G62.9 Peripheral neuropathy type: polyneuropathy, unspecified
== END 2024-11-14 16:24 | disposition home or self-care (01) ==
LOC: HO.HSM 15:32
PROVIDERS: PCP Internal Medicine; Referring Provider Internal Medicine; Visit Provider Registered Nurse
DX: G25.81 Restless legs syndrome (principal); M79.7 Fibromyalgia; G62.9 Polyneuropathy, unspecified
CPT/HCPCS: 99214

== ENCOUNTER → 2024-11-14 15:31 | Outpatient (BNVA) | payer OTHER, SELFPAY | PROVIDERS: PCP Internal Medicine; Referring Provider Internal Medicine; Visit Provider Registered Nurse | DX: G25.81 Restless legs syndrome (principal); M79.7 Fibromyalgia; G62.9 Polyneuropathy, unspecified; Z79.899 Other long term (current) drug therapy | CPT/HCPCS: 99212 ==